=== PATIENT | male | born 1970 | race Caucasian/White ===

== ENCOUNTER 2020-09-20 09:44 | Outpatient (REF) | payer OTHER, SELFPAY ==
[2020-09-20 11:29] LABS: MANUAL DIFF FLAG NO
[2020-09-20 11:42] LABS: Red Blood Count 4.72 X10*6/uL (4.60-5.80); White Blood Count 6.3 X10*3/uL (4.8-10.8)
[2020-09-20 11:43] LABS: Basophils Percent Auto 0.5 % (0-2); Eosinophils Absolute Auto 0.1 X10*3/uL (0.0-0.4); Eosinophils Percent Auto 1.7 % (0-4); Hematocrit 42.1 % (42-52); Hemoglobin 14.2 g/dl (14.0-18.0); Imm Gran Abs Auto 0.04 X10*3/uL (0.00-0.03); Imm Gran Pct Auto 0.6 % (0.0-0.4); Lymphocytes Absolute Auto 1.6 X10*3/uL (1.2-4.9); Lymphocytes Percent Auto 25.5 % (20-40); Mean Corpuscular HGB Conc 33.7 g/dl (31.0-36.0); Mean Corpuscular Hemoglobin 30.1 pg (27.0-33.0); Mean Corpuscular Volume 89.2 fL (80-98); Mean Platelet Volume 8.7 fL (9.4-12.4); Monocytes Absolute Auto 0.5 X10*3/uL (0.1-1.2); Monocytes Percent Auto 7.6 % (2-11); Neutrophils Percent Auto 64.1 % (45-73); Platelet Count 284 X10*3/uL (160-400); Red Cell Distribution Width 11.8 % (11.0-16.0)
[2020-09-20 12:01] LABS: Glucose Urine UA NEG (NEG); Leukocyte Esterase Urine NEG (NEG); Nitrite Urine NEG (NEG); PH 5.5 (5.0-8.0); Specific Gravity - Urine >= 1.030 (1.005-1.025); Urine Blood NEG (NEG); Urine Ketones NEG (NEG); Urine Protein NEG (NEG-TRACE)
[2020-09-20 12:03] LABS: Alanine Aminotransferase 59 U/L (0-40); Albumin Level 4.3 g/dL (3.5-5.0); Alkaline Phosphatase 51 U/L (39-117); Anion Gap 14 (12-20); Aspartate Amino Transferase 35 U/L (5-37); Bilirubin Total 0.8 mg/dL (0.0-1.0); Blood Urea Nitrogen 13 mg/dL (9-16); Calcium 8.7 mg/dL (8.4-10.2); Carbon Dioxide 23 mmol/L (22-29); Chloride 104 mmol/L (96-108); Cholesterol 160 mg/dL; Estimated Glomerular Filt Rate > 60; Glucose Fasting 90 mg/dL (60-99); HDL Cholesterol 39 mg/dL; LDL Cholesterol Calculated 86 mg/dl; Potassium 4.8 mmol/l (3.3-5.1); Sodium 136 mmol/L (135-145); Total Protein 6.6 g/dL (6.5-8.0); Triglycerides 175 mg/dL
[2020-09-20 12:05] LABS: Appearance Urine HAZY; Color Urine YELLOW
[2020-09-20 12:19] LABS: Thyroid Stimulating Hormone 1.17 uIU/mL (0.32-4.0); Vitamin D 25-OH Total 22.2 ng/mL (>30)
[2020-09-20 12:50] LABS: Prostate Specific Antigen 0.42 ng/mL (<0.05-4.0)
== END 2020-09-20 09:45 | disposition home or self-care (01) ==
LOC: HO.HMGCLDS 09:44
PROVIDERS: PCP Internal Medicine; Visit Provider Internal Medicine
DX: Z00.00 Encounter for general adult medical examination without abnormal findings (principal); E78.00 Pure hypercholesterolemia, unspecified; E55.9 Vitamin D deficiency, unspecified; E66.01 Morbid (severe) obesity due to excess calories
CPT/HCPCS: 36415; 80053; 80061; 81003; 82306; 84153; 84443; 85025

== ENCOUNTER 2020-11-09 12:54 | Outpatient (REF) | payer OTHER, SELFPAY ==
--- NOTE | 2020-11-09 14:47 | MHC.AU.P13 ---
Adult Audiological Evaluation Date of Visit: 11/09/20 Reason for Appointment: Audiological evaluation due to concerns for decreased hearing. Mr. Martinez reports that he has difficulties hearing in background noise and his often notes that he doesn't hear her. Does patient feel they have a hearing loss?: Yes If Yes, Which Ear?: Both Ears When Was Hearing Difficulty First Noticed?: several years ago Has hearing been tested previously?: Yes Previous Hearing Test Results: [facility] [place], 06/26/2014- Normal hearing, middle-ear systems, and OAEs bilaterally. Hearing Handicap Inventory: HHIE SCORE: 26 Based on HHIE score, patient has: Severe perceived hearing handicap Medical History: Medical History (Other): Microdiscectomy in 05/2002 Medication List: Simvastatin 40 mg, D3 2000 u, D2 50,000 u Otoscopy: Right Ear: Unremarkable Left Ear: Unremarkable Tympanometry: Right Ear: Hypercompliant Middle Ear System (Type Ad) Left Ear: Hypercompliant Middle Ear System (Type Ad) Hearing Evaluation: Transducer(s) Used: Insert Earphones, Bone Conduction Method: Conventional Audiometry Stimuli Used: Pure Tones Right Ear: Description of Hearing: Normal hearing from 250-8000 Hz. Left Ear: Description of Hearing: Normal hearing from 250-8000 Hz. Speech Recognition Threshold (SRT): Method Used: Monitored Live Voice Stimuli Used: Spondee Words Right Ear: 10 dBHL Left Ear: 10 dBHL Word Discrimination: Method: Recorded Lists Word Lists Used: NU-6 Right Ear: 100% at 50 dBHL Left Ear: 100% at 50 dBHL QuickSIN: 1 dB SNR loss, normal/near normal speech understanding in the presence of background noise. Presented binaurally at 70 dBHL Comparison: Compared to the most recent evaluation: Hearing is stable. Recommendations: Recommendations: No further audiological action is indicated at this time. Audiological re-evaluation if changes are noted. Diagnosis: Primary Diagnosis: H93.293 Abnormal Auditory Perception Services Performed: Services Performed: Comprehensive Audiological Evaluation (CPT 76307) Tympanometry (CPT 88332) Unlisted Otorhinolaryngological Service or Procedure (CPT 44999) Signature: Provider: Estelle Kapoor, DEBRA-A
== END 2020-11-09 12:55 | disposition home or self-care (01) ==
LOC: HO.SH 12:54
PROVIDERS: Visit Provider Internal Medicine
DX: H93.293 Other abnormal auditory perceptions, bilateral (principal)
CPT/HCPCS: 92557; 92567; 92700

== ENCOUNTER → 2020-11-10 14:59 | Outpatient (BNVA) | payer OTHER, SELFPAY | PROVIDERS: PCP Internal Medicine; Visit Provider Internal Medicine | DX: Z76.89 Persons encountering health services in other specified circumstances (principal) ==

== ENCOUNTER → 2020-11-23 14:05 | Outpatient (REF) | payer OTHER, SELFPAY | LOC: HO.SL 14:05 | PROVIDERS: Visit Provider Internal Medicine | DX: G47.33 Obstructive sleep apnea (adult) (pediatric) (principal); E66.01 Morbid (severe) obesity due to excess calories | CPT/HCPCS: 95806 ==

== ENCOUNTER 2021-01-10 06:30 | Day surgery (SDC) | payer OTHER, SELFPAY ==
[2021-01-03 20:22] VITALS: BMI 39.1
[2021-01-10 06:42] VITALS: BP 127/76; PULSE 93; RESP 18; TEMP 37.1; O2SAT 97
--- NOTE | 2021-01-10 07:29 | P.CONAN_ITS ---
[facility] Active Problems Active Problems: All Active Problems (Updated 01/03/21 @ 20:22 by Diana Diaz RN) KELSEY (obstructive sleep apnea) (Acute) Morbid obesity (Acute) Past Medical History Medical History Morbid obesity KELSEY (obstructive sleep apnea) Surgical History Surgical History History of colonoscopy History of discectomy (~2001) Social History Social History Smoking Status: Never smoker Second Hand Smoke Exposure: No Use of substances other than those prescribed or required for medical reasons: No Advance Directives: No Advance Directives Information Provided: No Advance Directives on File: No Recently lost weight without trying: No Meds Allergies Allergy/AdvReac Type Severity Reaction Status Date / Time No Known Allergies Allergy Verified 11/10/20 15:14 [No Known Allergies*] Active Medications: Current Medications Generic Name Dose Route Start Last Admin Trade Name Freq PRN Reason Stop Dose Admin Sodium Biphosphate/Sodium Phosphate 133 ml 01/10/21 06:00 Sodium Phosphate,[place]-Dibasic 133 Ml Enema PA ONCE PRN Poor Colonoscopy Prep Results Home Medications Medication Instructions Recorded Confirmed Last Taken Type cholecalciferol (vitamin D3) 125 125 mcg PO DAILY 11/10/20 01/04/21 Unknown History mcg (5,000 unit) capsule ergocalciferol (vitamin D2) 1,250 1,250 mcg PO QWEEK 11/10/20 01/04/21 Unknown History mcg (50,000 unit) capsule simvastatin 40 mg tablet 40 mg PO BEDTIME 11/10/20 01/04/21 Unknown History Exam Exam Date and Time: January 10, 2021 0729 Height,Weight and Vital Signs: Height 5 ft 7 in Weight 113.398 kg Last Vital Signs Temp 98.7 F 01/10/21 06:42 Pulse 93 01/10/21 06:42 Resp 18 01/10/21 06:42 BP 127/76 01/10/21 06:42 Pulse Ox 97 01/10/21 06:42 Airway Mallampati Class: III TM Dist: >3cm Neck ROM: Full
[2021-01-10] MEDS: Lactated Ringers 1,000 ML 100 ML IVCONT (07:33)
[2021-01-10 08:25] VITALS: BP 106/53; PULSE 85; RESP 15; TEMP 35.9; O2SAT 96
--- NOTE | 2021-01-10 08:27 | PM.OP ---
Brief Operative Note Date of Service: 01/10/21 Pre-op diagnosis: Screening Post-op diagnosis: other (Colon polyp) Procedure: Colonoscopy to cecum and TI with biopsy and removal of polyp Surgeon: Pardeep Antonio Anesthesia: MAC Estimated blood loss (mL): 3.0 Pathology: other (A. Polyp at 20cm) Condition: stable Disposition: PACU
[2021-01-10 08:40] VITALS: BP 111/66; PULSE 73; RESP 16; O2SAT 99
--- NOTE | 2021-01-10 08:48 | PC.NURSE ---
[id number] AND IVF DCD ASST OOB CH STEADY IV DCD PT DRESSED DSELF AT BS CALL MARCOS IN REACH
--- NOTE | 2021-01-10 09:12 | OP_ITS ---
SURGEON: Pardeep Antonio MD INDICATIONS: The patient presents for evaluation of colorectal cancer screening and personal history of tubular adenoma of the colon. Full consent has been obtained from him for this, including risks of bleeding and perforation. PREOPERATIVE DIAGNOSIS: POSTOPERATIVE DIAGNOSIS: PROCEDURE PERFORMED: Colonoscopy to cecum and terminal ileum with biopsy and removal of polyp. ESTIMATED BLOOD LOSS: COMPLICATIONS: ANESTHESIA: Monitored anesthesia care. ASSISTANTS: SPECIMENS: PREOPERATIVE DIAGNOSES: Colorectal cancer screening and personal history of tubular adenoma of the colon. POSTOPERATIVE DIAGNOSES: Colorectal cancer screening and personal history of tubular adenoma of the colon, small colon polyp, mild sigmoid diverticulosis, internal hemorrhoids. DESCRIPTION OF PROCEDURE: The patient was placed in the left lateral decubitus position. The digital rectal exam revealed no abnormalities. The Olympus video pediatric colonoscope was entered into the rectum and advanced easily to the cecum. Once in the cecum, I did identify normal-appearing cecal pouch with appendiceal orifice and a normal-appearing ileocecal valve. The terminal ileum was cannulated and appeared normal. The scope was withdrawn back in the colon. The entire cecum and ileocecal valve appeared normal. The scope was slowly withdrawn assessing all mucosal surfaces carefully. Preparation was excellent. At 20 cm, was a flat 3 or 4 mm probable hyperplastic polyp, which was biopsied and completely removed with cold biopsy forceps. I did not visualize any other polyps, colitis, nor angiodysplasia. There was a mild amount of sigmoid diverticulosis. In the rectum, scope was retroflexed visualizing small internal hemorrhoids, but no other pathology. The rectal mucosa appeared normal. The scope was straightened out and withdrawn from the patient. He tolerated the procedure well and was returned to the recovery area in stable condition. IMPRESSION: 1. Small colon polyp, status post biopsy and removal. 2. Mild sigmoid diverticulosis. 3. Small internal hemorrhoids. PLAN: The results of the pathology will be checked. I would recommend a repeat colonoscopy in 5 years for further surveillance. He will otherwise see me on a p.r.n. basis. MD KOBI Madrigal/STEPAN / [phone]
== END 2021-01-10 09:17 | disposition home or self-care (01) ==
PROVIDERS: PCP Internal Medicine; Visit Provider Internal Medicine
PROC: 0DJD8ZZ Inspection of Lower Intestinal Tract, Via Natural or Artificial Opening Endoscopic (ICD-10-PCS; CPT 45378; principal; 2021-01-10 07:30)
DX: Z12.11 Encounter for screening for malignant neoplasm of colon (principal); Z86.010 Personal history of colon polyps; K63.5 Polyp of colon; K57.30 Diverticulosis of large intestine without perforation or abscess without bleeding; K64.8 Other hemorrhoids; G47.33 Obstructive sleep apnea (adult) (pediatric); E66.01 Morbid (severe) obesity due to excess calories; Z68.41 Body mass index [BMI] 40.0-44.9, adult; Z79.899 Other long term (current) drug therapy; Z79.82 Long term (current) use of aspirin
CPT/HCPCS: 45380; 88305

== ENCOUNTER 2022-01-10 15:57 | Outpatient (REF) | payer OTHER, SELFPAY ==
[2022-01-10 16:09] LABS: MANUAL DIFF FLAG NO
[2022-01-10 16:26] LABS: Basophils Percent Auto 0.5 % (0-2); Eosinophils Absolute Auto 0.2 X10*3/uL (0.0-0.4); Eosinophils Percent Auto 2.2 % (0-4); Hematocrit 43.1 % (42.0-52.0); Hemoglobin 14.7 g/dl (14.0-18.0); Imm Gran Abs Auto 0.02 X10*3/uL (0.00-0.03); Imm Gran Pct Auto 0.2 % (0.0-0.4); Lymphocytes Percent Auto 23.2 % (20-40); Mean Corpuscular HGB Conc 34.1 g/dl (31.0-36.0); Mean Corpuscular Hemoglobin 30.5 pg (27.0-33.0); Mean Corpuscular Volume 89.4 fL (80.0-98.0); Mean Platelet Volume 8.5 fL (9.4-12.4); Monocytes Absolute Auto 0.7 X10*3/uL (0.1-1.2); Monocytes Percent Auto 8.2 % (2-11); Neutrophils Absolute Auto 5.6 x10*3/uL (2.0-8.3); Neutrophils Percent Auto 65.7 % (45-73); Platelet Count 295 X10*3/uL (160-400); Red Blood Count 4.82 X10*6/uL (4.60-5.80); Red Cell Distribution Width 11.8 % (11.0-16.0); White Blood Count 8.5 X10*3/uL (4.8-10.8)
[2022-01-10 16:46] LABS: Alanine Aminotransferase 32 U/L (0-40); Albumin Level 4.5 g/dL (3.5-5.0); Alkaline Phosphatase 59 U/L (39-117); Anion Gap 12 (12-20); Aspartate Amino Transferase 21 U/L (5-37); Bilirubin Total 0.6 mg/dL (0.0-1.0); Blood Urea Nitrogen 11 mg/dL (9-16); Calcium 9.6 mg/dL (8.4-10.2); Carbon Dioxide 26 mmol/L (22-29); Chloride 104 mmol/L (96-108); Estimated Glomerular Filt Rate > 60; Glucose Random 83 mg/dL (60-115); Potassium 4.5 mmol/L (3.3-5.1); Sodium 137 mmol/L (135-145); Total Protein 6.9 g/dL (6.5-8.0)
[2022-01-10 17:08] LABS: Vitamin D 25-OH Total 44.5 ng/mL (>30)
== END 2022-01-10 15:58 | disposition home or self-care (01) ==
LOC: HO.LAB 15:57
PROVIDERS: PCP Internal Medicine; Visit Provider Internal Medicine
DX: Z00.00 Encounter for general adult medical examination without abnormal findings (principal); E78.00 Pure hypercholesterolemia, unspecified; E55.9 Vitamin D deficiency, unspecified; E66.01 Morbid (severe) obesity due to excess calories; R41.3 Other amnesia
CPT/HCPCS: 36415; 80053; 82306; 85025

== ENCOUNTER → 2022-02-02 14:46 | Outpatient (BNVA) | payer OTHER, SELFPAY | PROVIDERS: PCP Internal Medicine; Visit Provider Internal Medicine | DX: G47.33 Obstructive sleep apnea (adult) (pediatric) (principal) ==

== ENCOUNTER 2022-02-13 13:04 | Outpatient (REF) | payer OTHER, SELFPAY ==
[2022-02-13 15:32] LABS: Vitamin B12 316 pg/mL (200-900)
== END 2022-02-13 13:05 | disposition home or self-care (01) ==
LOC: HO.LAB 13:04
PROVIDERS: Internal Medicine; PCP Internal Medicine; Visit Provider Psychiatry & Neurology Neurology
DX: G31.84 Mild cognitive impairment of uncertain or unknown etiology (principal)
CPT/HCPCS: 36415; 82607

== ENCOUNTER 2023-06-01 12:52 | Outpatient (REF) | payer OTHER, SELFPAY ==
[2023-06-01 16:14] LABS: MANUAL DIFF FLAG NO
[2023-06-01 16:38] LABS: Basophils Percent Auto 0.4 % (0-2); Eosinophils Absolute Auto 0.1 X10*3/uL (0.0-0.4); Hematocrit 42.5 % (42.0-52.0); Hemoglobin 14.3 g/dl (14.0-18.0); Imm Gran Abs Auto 0.02 X10*3/uL (0.00-0.03); Imm Gran Pct Auto 0.3 % (0.0-0.4); Lymphocytes Absolute Auto 1.8 X10*3/uL (1.2-4.9); Lymphocytes Percent Auto 25.6 % (20-40); Mean Corpuscular HGB Conc 33.6 g/dl (31.0-36.0); Mean Corpuscular Volume 89.3 fL (80.0-98.0); Monocytes Absolute Auto 0.5 X10*3/uL (0.1-1.2); Monocytes Percent Auto 7.8 % (2-11); Neutrophils Absolute Auto 4.5 x10*3/uL (2.0-8.3); Neutrophils Percent Auto 63.9 % (45-73); Platelet Count 306 X10*3/uL (160-400); Red Blood Count 4.76 X10*6/uL (4.60-5.80); Red Cell Distribution Width 11.9 % (11.0-16.0)
[2023-06-01 16:55] LABS: C Reactive Protein 0.17 mg/dL (< or = 0.50)
[2023-06-04 18:17] LABS: Lyme Abs Screen <0.90 index
== END 2023-06-01 12:53 | disposition home or self-care (01) ==
LOC: HO.HMGCLDS 12:52
PROVIDERS: PCP Internal Medicine; Visit Provider Internal Medicine
DX: T14.8XXA Other injury of unspecified body region, initial encounter (principal); W57.XXXA Bitten or stung by nonvenomous insect and other nonvenomous arthropods, initial encounter; Y93.9 Activity, unspecified; Y92.9 Unspecified place or not applicable; Y99.9 Unspecified external cause status
CPT/HCPCS: 36415; 85025; 86140; 86617; 86618

== ENCOUNTER 2023-06-15 13:15 | Emergency (ER) | payer OTHER, SELFPAY ==
--- NOTE | 2023-06-15 | ECG_ITS ---
Test Reason : DIZZY Blood Pressure : / mmHG Vent. Rate : 077 BPM Atrial Rate : 077 BPM P-R Int : 156 ms QRS Dur : 090 ms QT Int : 390 ms P-R-T Axes : 021 009 001 degrees QTc Int : 441 ms Normal sinus rhythm Normal ECG No previous ECGs available Referred By: Generic ED Physician Electronically Signed By:Miguel Tran
--- NOTE | ~2023-06-15 | CT_ITS ---
EXAMINATION: CT ANGIOGRAM NECK WITH CONTRAST CT ANGIOGRAM BRAIN WITH CONTRAST CLINICAL INFORMATION: Dizziness. COMPARISON: None. TECHNIQUE: Test bolus sequences followed by intravenous administration 100 mL of Omnipaque 350. Helical imaging was performed in the axial plane from the thoracic inlet to the skull vertex. Delayed postcontrast imaging of the head was also performed. The data was processed at the dairy technologist workstation for generation of MIP sequences. Angled MIPs and volume rendered reformatted images were also generated at an offline 3D workstation. Stenoses are assessed in accordance with NASCET criteria unless otherwise indicated. This CT examination was performed using dose optimization techniques as appropriate, variously including the following: *Automated exposure control *Adjustment of mA and/or kV according to patient size (this includes techniques or standardized protocols for targeted exams where dose is matched to indication/reason for exam; i.e. extremities or head) *Use of iterative reconstruction technique DLP: 2504 mGy-cm FINDINGS: Head CT: There is no intracranial hemorrhage, large acute infarction, or mass lesion. The ventricles are normal in size and configuration without evidence of hydrocephalus. There is no abnormal enhancement. The dural venous sinuses are normally opacified. There is mild paranasal sinus mucosal thickening. Neck CTA: Aortic arch and great vessel origins are patent. The bilateral common and internal carotid arteries are patent. No significant stenosis is seen at the carotid bifurcations with mild atheromatous changes noted. Both vertebral arteries are patent. Head CTA: No large vessel occlusion is seen. Intracranial ICAs, ACAs, and MCAs are patent. The intradural vertebral arteries and basilar artery are patent. No aneurysm is seen. Non-vascular findings: The cervical soft tissues are within normal limits. No consolidation is seen within the upper lungs. Mild degenerative changes are seen in the spine. CT/CT angio head neck IMPRESSION: CT HEAD: No intracranial hemorrhage or large acute infarction. CTA NECK: No hemodynamically significant stenosis in the major arteries of the neck. CTA HEAD: No large vessel occlusion or significant stenosis within the intracranial circulation.
[2023-06-15 13:26] VITALS: BP 124/88; PULSE 96; O2SAT 96
[2023-06-15 13:28] VITALS: BP 121/66; PULSE 95; RESP 16; TEMP 36.4; O2SAT 97; BMI 44.4
[2023-06-15 15:52] LABS: MANUAL DIFF FLAG NO
[2023-06-15 15:58] LABS: Basophils Percent Auto 0.3 % (0-2); Eosinophils Percent Auto 0.1 % (0-4); Hematocrit 39.6 % (42.0-52.0); Hemoglobin 13.7 g/dl (14.0-18.0); Imm Gran Abs Auto 0.04 X10*3/uL (0.00-0.03); Imm Gran Pct Auto 0.4 % (0.0-0.4); Lymphocytes Percent Auto 11.2 % (20-40); Mean Corpuscular HGB Conc 34.6 g/dl (31.0-36.0); Mean Corpuscular Hemoglobin 30.1 pg (27.0-33.0); Mean Platelet Volume 8.4 fL (9.4-12.4); Monocytes Absolute Auto 0.4 X10*3/uL (0.1-1.2); Monocytes Percent Auto 4.1 % (2-11); Neutrophils Absolute Auto 7.5 x10*3/uL (2.0-8.3); Neutrophils Percent Auto 83.9 % (45-73); Platelet Count 272 X10*3/uL (160-400); Red Blood Count 4.55 X10*6/uL (4.60-5.80); Red Cell Distribution Width 11.8 % (11.0-16.0)
--- NOTE | 2023-06-15 16:30 | ED_ITS ---
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 No CP/SOB. Currently has no dizziness just feels nauseated still. Has not had this before. Has no numbness, weakness, vision changes. EMS gave zofran which helped. 2 weeks ago he has had on and off bleeding from L ear - has had ear infetions in the past and was going to wait to see Dr. Castellano. No neck pain and no neck manipulation. This is not characteristic of his Chiaria pain or issues. MD elicited complaint: dizziness and lightheadedness Pertinent past history: inner ear problems Onset (ago): hour(s) (started 930AM) Timing: sudden onset Severity: severe Description: room spinning Context: other (bleeding L ear on and off 2 weeks ago) History of similar symptoms: No Exacerbating factors: movement/ambulation Relieving factors: remaining still Associated symptoms: nausea and diaphoresis Related Data Home Medications Medication Instructions Recorded Confirmed cholecalciferol (vitamin D3) 125 125 mcg PO DAILY 11/10/20 01/04/21 mcg (5,000 unit) capsule ergocalciferol (vitamin D2) 1,250 1,250 mcg PO QWEEK 11/10/20 01/04/21 mcg (50,000 unit) capsule simvastatin 40 mg tablet 40 mg PO BEDTIME 11/10/20 01/04/21 ascorbic acid (vitamin C) 500 mg mg PO 02/02/22 capsule aspirin 81 mg tablet,delayed 81 mg PO DAILY 02/02/22 release pumpkin seed extract 500 mg capsule mg PO 02/02/22 Previous Rx's Medication Instructions Recorded amoxicillin 875 mg-potassium 1 tab PO BID #13 tabs 06/15/23 clavulanate 125 mg tablet meclizine 25 mg tablet 25 mg PO TID PRN dizziness #30 tabs 06/15/23 ofloxacin 0.3 % ear drops 10 drp otic (ears) DAILY 7 days #5 06/15/23 mL ondansetron 4 mg disintegrating 4 mg PO Q8H PRN nausea and 06/15/23 tablet vomiting #20 tabs Allergies Allergy/AdvReac Type Severity Reaction Status Date / Time No Known Allergies Allergy Verified 02/02/22 15:33 [No Known Allergies*] Review of Systems Review of Systems: Constitutional : No Fever, No Chills, No Fatigue ENT/Mouth : No sore throat, No Rhinorrhea, pos ear pain and bleeding Eyes: No Eye Pain, No Swelling, No Redness Cardiovascular : No Chest Pain, No SOB, No Dyspnea on Exertion Respiratory : No Cough, No Sputum Gastrointestinal : pos Nausea, pos Vomiting, No Diarrhea, No abdominal Pain Genitourinary : No Dysuria, No Urinary Frequency, No Hematuria, Musculoskeletal : No joint pain, No Myalgias, No Joint Swelling Skin : No Skin Lesions, No rash Neuro : No Weakness, No Numbness, pos Dizziness, no Headache Psych : No Anxiety/Panic, No Depression Heme/Lymph: No Bruising, No Bleeding,No Lymphadenopathy Endocrine : No Polyuria, No Polydipsia All other systems reviewed and are negative [facility] Past Medical History Attestation statement: The following information was validated with the patient. Medical History Morbid obesity KELSEY (obstructive sleep apnea) Surgical History History of colonoscopy History of discectomy (~2001) Social History Social History (Updated 06/15/23 @ 17:43 by Corin Wan DO) Patient Tobacco Use Status: Never used Tobacco Second Hand Smoke Exposure: No Advance Directives: No Advance Directives Information Provided: No Physical Exam Vital Signs: Vital Signs: Last Vital Signs Temp 98.6 F 06/15/23 19:07 Pulse 79 06/15/23 19:07 Resp 13 06/15/23 19:07 BP 116/63 06/15/23 19:07 Pulse Ox 98 06/15/23 19:07 O2 Del Method Room Air 06/15/23 19:07 BMI result Body Mass Index 44.4 Appearance: Alert. Oriented X3. No acute distress. Eyes: Pupils equal, round and reactive to light. ENT: Pharynx normal. L TM mild otitis media bulging loss of landmarks and yellow effusion noted dried bloody scab in canal as well Neck: Normal inspection. Neck supple. CVS: Normal heart rate and rhythm. Pulses normal. Respiratory: No respiratory distress. Breath sounds normal. Abdomen: Soft and nontender. Skin: Skin warm and dry. Normal skin color. Normal skin turgor. Extremities: No lower extremity edema. No calf ttp Neuro: Oriented X 3. No motor deficit. No sensory deficit. no drift noted Course Course Course Narrative: feels better workup negative with symptoms > 8 hours at this time stable for DC tolerating PO Medications Administered Discontinued Medications Generic Name Dose Route Start Last Admin Trade Name Michelle PRN Reason Stop Dose Admin Sodium Chloride 1,000 mls @ 999 mls/hr 06/15/23 16:30 06/15/23 16:42 Ns IV 06/15/23 17:30 999 mls/hr .Q1H1M NIECY Administration Iohexol 100 ml 06/15/23 17:24 06/15/23 17:24 Iohexol 350 Mg/Ml 100 Ml Infus..Btl IV 06/15/23 17:25 70 ml ONCE ONE Administration Medical Decision Making Medical Decision Making [facility] Narrative: 53 yo male with hx of chiari malfomration, KELSEY here with c/o dizziness and n/v with diaphoresis this AM without CP/SOB to suggest ACS, PE/dissection. The patient does feel better this AM. It is not characteristic of his Jordana presentation. He did have bleeding from L ear but has scab in canal and has L otitis media which could be triggering vertigo. Given his chiari malformation I am going to obtain CTA to rule dissection. IVF ordered. Differential Diagnosis Differential Diagnoses: The differential diagnosis associated with the presentation includes vertigo, dehydration, atypical ACS, no CP/SOB - to suggest PE, no persistent dizziness numbness weakness changes in vision to suggest posterior stroke Admission/Observation Consideration of admission/observation: Escalation of care including admission/observation considered feels better work up negative tolerating PO Lab Data [facility] Lab Attestation statement: I reviewed the patient's lab results. 06/15/23 15:46 06/15/23 15:46 Labs: Lab Results 06/15/23 06/15/23 06/15/23 Range/Units 15:46 15:46 15:49 WBC 9.0 (4.8-10.8) X10*3/uL RBC 4.55 L (4.60-5.80) X10*6/uL Hgb 13.7 L (14.0-18.0) g/dl Hct 39.6 L (42.0-52.0) % MCV 87.0 (80.0-98.0) fL MCH 30.1 (27.0-33.0) pg MCHC 34.6 (31.0-36.0) g/dl RDW 11.8 (11.0-16.0) % Plt Count 272 (160-400) X10*3/uL MPV 8.4 L (9.4-12.4) fL Immature Gran % (Auto) 0.4 (0.0-0.4) % Neut % (Auto) 83.9 H (45-73) % Lymph % (Auto) 11.2 L (20-40) % [place] % (Auto) 4.1 (2-11) % Eos % (Auto) 0.1 (0-4) % Baso % (Auto) 0.3 (0-2) % Lymph # (Auto) 1.0 L (1.2-4.9) X10*3/uL [place] # (Auto) 0.4 (0.1-1.2) X10*3/uL Eos # (Auto) 0.0 (0.0-0.4) X10*3/uL Baso # (Auto) 0.0 (0.0-0.2) X10*3/uL Abs Immat Gran (auto) 0.04 H (0.00-0.03) X10*3/uL Absolute Neuts (auto) 7.5 (2.0-8.3) x10*3/uL Absolute Nucleated RBC 0.000 (0.0-0.012) X10*3/uL Nucleated RBC % (auto) 0.0 (0.0-0.2) /100WBC Sodium 138 (135-145) mmol/L Potassium 4.1 (3.3-5.1) mmol/L Chloride 107 (96-108) mmol/L Carbon Dioxide 25 (22-29) mmol/L Anion Gap 10 L (12-20) BUN 12 (9-16) mg/dL Creatinine 0.77 (0.5-1.4) mg/dL Estim Creat Clear Calc 144.6 Estimated GFR > 60 Random Glucose 123 H (60-115) mg/dL Calcium 9.1 (8.4-10.2) mg/dL Total Bilirubin 0.8 (0.0-1.0) mg/dL AST 50 H (5-37) U/L ALT 84 H (0-40) U/L Alkaline Phosphatase 49 (39-117) U/L Troponin I High Sens < 2.7 (<3.5-35.0) ng/L Total Protein 6.5 (6.5-8.0) g/dL Albumin 4.0 (3.5-5.0) g/dL Urine Color Urine Appearance Urine pH (5.0-9.0) Ur Specific [place] (1.005-1.025) Urine Protein (Neg-Trace) mg/dL Urine Glucose (UA) (Negative) mg/dL Urine Ketones (Negative) mg/dL Urine Blood (Negative) Urine Nitrite (Negative) Ur Leukocyte Esterase (Negative) Urine RBC (0-2) /HPF Urine WBC (0-5) /HPF Ur Squamous Epith Cells (0-2) /HPF Urine Bacteria (None Seen) Hyaline Casts (0-2) /LPF 06/15/23 Range/Units 19:10 WBC (4.8-10.8) X10*3/uL RBC (4.60-5.80) X10*6/uL Hgb (14.0-18.0) g/dl Hct (42.0-52.0) % MCV (80.0-98.0) fL MCH (27.0-33.0) pg MCHC (31.0-36.0) g/dl RDW (11.0-16.0) % Plt Count (160-400) X10*3/uL MPV (9.4-12.4) fL Immature Gran % (Auto) (0.0-0.4) % Neut % (Auto) (45-73) % Lymph % (Auto) (20-40) % [place] % (Auto) (2-11) % Eos % (Auto) (0-4) % Baso % (Auto) (0-2) % Lymph # (Auto) (1.2-4.9) X10*3/uL [place] # (Auto) (0.1-1.2) X10*3/uL Eos # (Auto) (0.0-0.4) X10*3/uL Baso # (Auto) (0.0-0.2) X10*3/uL Abs Immat Gran (auto) (0.00-0.03) X10*3/uL Absolute Neuts (auto) (2.0-8.3) x10*3/uL Absolute Nucleated RBC (0.0-0.012) X10*3/uL Nucleated RBC % (auto) (0.0-0.2) /100WBC Sodium (135-145) mmol/L Potassium (3.3-5.1) mmol/L Chloride (96-108) mmol/L Carbon Dioxide (22-29) mmol/L Anion Gap (12-20) BUN (9-16) mg/dL Creatinine (0.5-1.4) mg/dL Estim Creat Clear Calc Estimated GFR Random Glucose (60-115) mg/dL Calcium (8.4-10.2) mg/dL Total Bilirubin (0.0-1.0) mg/dL AST (5-37) U/L ALT (0-40) U/L Alkaline Phosphatase (39-117) U/L Troponin I High Sens (<3.5-35.0) ng/L Total Protein (6.5-8.0) g/dL Albumin (3.5-5.0) g/dL Urine Color Yellow Urine Appearance Clear Urine pH 8.0 (5.0-9.0) Ur Specific [place] >= 1.030 H (1.005-1.025) Urine Protein Negative (Neg-Trace) mg/dL Urine Glucose (UA) Negative (Negative) mg/dL Urine Ketones Negative (Negative) mg/dL Urine Blood Negative (Negative) Urine Nitrite Negative (Negative) Ur Leukocyte Esterase Negative (Negative) Urine RBC 0-2 (0-2) /HPF Urine WBC 0-5 (0-5) /HPF Ur Squamous Epith Cells 0-2 (0-2) /HPF Urine Bacteria None Seen (None Seen) Hyaline Casts 0-2 (0-2) /LPF Independent Interpretation I performed an independent interpretation of an: EKG and CT Scan (normal ) Interpretation: Rate: 77 Rhythm: NSR [place]: normal Normal P waves. Normal RAIMUNDO. Normal QRS complex. ST T wave : inverted t wave III qTC: normal prior studies: no acute ischemia The study has been interpreted contemporaneously by me. . Radiology Impression Discussion of test interpretation with radiology: I discussed test interpretation with the radiologist and I have reviewed the radiologist's reading. Independent Historian Clinical information obtained from an independent historian. History obtained from or confirmed by: Spouse External Record Review External record reviewed: Office record Prescription Management I considered prescription management with: Antibiotic and Other Discharge Plan Discharge Clinical Impression: Dizziness Otitis media Qualifiers: Otitis media type: suppurative Chronicity: acute Laterality: left Recurrence: recurrent Spontaneous tympanic membrane rupture: without spontaneous rupture Qualified Code(s): H66.005 - Acute suppurative otitis media without spontaneous rupture of ear drum, recurrent, left ear Otitis externa Qualifiers: Otitis externa type: diffuse Chronicity: acute Laterality: left Qualified Code(s): H60.312 - Diffuse otitis externa, left ear Patient Disposition: Home, Self-Care Instructions: Ear Infection (ED), Dizziness (ED) Additional Instructions: return for worsening symptoms, increased dizziness, numbness, weakness, chest pain, trouble breathing, loss of vision or any other changes. follow up with your ENT. take a probiotic with your antibiotic. if you have more than 6 loose stools a day talk to your doctor your liver enzymes are mildly bumped this has happened in the past just make sure your doctor monitors this next week - this has been in chronic in the past. Prescriptions: New amoxicillin-pot clavulanate 875-125 mg tablet 1 tab PO BID Qty: 13 0RF ondansetron 4 mg tablet,disintegrating 4 mg PO Q8H PRN (Reason: nausea and vomiting) Qty: 20 0RF meclizine 25 mg tablet 25 mg PO TID PRN (Reason: dizziness) Qty: 30 0RF ofloxacin 0.3 % drops 10 drp otic (ears) DAILY 7 Days Qty: 5 0RF No Action simvastatin 40 mg tablet 40 mg PO BEDTIME cholecalciferol (vitamin D3) 125 mcg (5,000 unit) capsule 125 mcg PO DAILY ergocalciferol (vitamin D2) 1,250 mcg (50,000 unit) capsule 1,250 mcg PO QWEEK aspirin 81 mg tablet,delayed release (DR/EC) 81 mg PO DAILY pumpkin seed extract 500 mg capsule PO ascorbic acid (vitamin C) 500 mg capsule PO
[2023-06-15 16:39] LABS: Alanine Aminotransferase 84 U/L (0-40); Alkaline Phosphatase 49 U/L (39-117); Anion Gap 10 (12-20); Aspartate Amino Transferase 50 U/L (5-37); Bilirubin Total 0.8 mg/dL (0.0-1.0); Blood Urea Nitrogen 12 mg/dL (9-16); Calcium 9.1 mg/dL (8.4-10.2); Carbon Dioxide 25 mmol/L (22-29); Chloride 107 mmol/L (96-108); Creatinine Clr Calc Pharmacy 144.6; Estimated Glomerular Filt Rate > 60; Glucose Random 123 mg/dL (60-115); Potassium 4.1 mmol/L (3.3-5.1); Sodium 138 mmol/L (135-145); Total Protein 6.5 g/dL (6.5-8.0)
[2023-06-15 16:42] VITALS: BP 109/65; PULSE 75; RESP 12; TEMP 36.7; O2SAT 95
[2023-06-15] MEDS: 0.9 % Sodium Chloride 1,000 ML 999 ML IV (16:42)
[2023-06-15 17:09] LABS: Troponin-I High Sensitivity < 2.7 ng/L (<3.5-35.0)
[2023-06-15] MEDS: iohexoL 350 MG/ML 100 ML INFUS..BTL IV (17:24)
[2023-06-15 19:07] VITALS: BP 116/63; PULSE 79; RESP 13; TEMP 37; O2SAT 98
[2023-06-15 19:18] LABS: Appearance Urine Clear; Color Urine Yellow; Glucose Urine UA Negative (Negative); Leukocyte Esterase Urine Negative (Negative); Nitrite Urine Negative (Negative); Specific Gravity - Urine >= 1.030 (1.005-1.025); Urine Blood Negative (Negative); Urine Ketones Negative (Negative); Urine Protein Negative (Neg-Trace)
[2023-06-15 19:20] LABS: Bacteria Urine None Seen (None Seen); Hyaline Casts Urine 0-2 /LPF (0-2); RBC Urine 0-2 /HPF (0-2); Squamous Epithelial Cell Urine 0-2 /HPF (0-2); WBC Urine 0-5 /HPF (0-5)
== END 2023-06-15 20:09 | disposition home or self-care (01) ==
PROVIDERS: Emergency Provider Emergency Medicine
DX: R42 Dizziness and giddiness (principal); H66.005 Acute suppurative otitis media without spontaneous rupture of ear drum, recurrent, left ear; H60.312 Diffuse otitis externa, left ear
CPT/HCPCS: 36415; 70496; 70498; 80053; 81001; 84484; 85025; 93005; 99284; Q9967

== ENCOUNTER → 2023-06-15 16:32 | Outpatient (BNV) | payer OTHER, SELFPAY | PROVIDERS: Emergency Provider Emergency Medicine; Visit Provider Internal Medicine Cardiovascular Disease | DX: R42 Dizziness and giddiness (principal) | CPT/HCPCS: 93010 ==

== ENCOUNTER 2023-07-23 14:42 | Outpatient (AMB) | payer OTHER, SELFPAY ==
[2023-07-23 15:16] VITALS: BP 130/80; PULSE 84; TEMP 36.6; O2SAT 97; BMI 43.3
--- NOTE | 2023-07-23 15:16 | AM.OFFWIN_ITS ---
Intake Vital Signs 07/23/23 15:16 Height 5 ft 7 in Weight 276 lb 4 oz BMI 43.3 BP 130/80 Blood Pressure Location Rt brachial Position Sitting Pulse 84 Pulse Source Pulse Oximeter Temp 97.9 F Temp Source Temporal Artery Scan Pulse Oximetry (%) 97 Intake Visit Reasons: EST/splinter in right hand Intake Note: pt is here for c/o wound on palm of hand, unsure if something is inside Patient Tobacco Use Status: Never used Tobacco Allergies No Known Allergies [No Known Allergies*] Allergy (Verified 07/23/23 15:53) Medication List - Last Reconciled 07/23/23 by Seven Zhang MD ascorbic acid (vitamin C) mg PO aspirin 81 mg PO DAILY cholecalciferol (vitamin D3) 125 mcg PO DAILY ergocalciferol (vitamin D2) 1,250 mcg PO QWEEK meclizine 25 mg PO TID PRN ofloxacin 0.3% 10 drps otic (ears) DAILY 7 days ondansetron 4 mg PO Q8H PRN pumpkin seed extract mg PO simvastatin 40 mg PO BEDTIME HPI EST/splinter in right hand HPI Details 53-year-old male presents to the office for a sick visit. Week ago, patient had a splinter injury in his right hand he believes there is part of the splinter stool air. He feels discomfort at the wound and occasional drainage. PENDING SALE TO [facility] Medical History Morbid obesity KELSEY (obstructive sleep apnea) Surgical History History of colonoscopy History of discectomy (~2001) Social History (Updated 06/15/23 @ 17:43 by Corin Wan DO) Patient Tobacco Use Status: Never used Tobacco Second Hand Smoke Exposure: No Physical Exam Vital Signs: Last Vital Signs Temp 97.9 F 07/23/23 15:16 Pulse 84 07/23/23 15:16 BP 130/80 07/23/23 15:16 Pulse Ox 97 07/23/23 15:16 BMI result Body Mass Index 43.3 Skin Other: Right hand: Palmar surface: Wound at the base of the 2nd finger. Nontender to touch. It is healing. Assessment & Plan Assessment & Plan (1) Foreign body hand: Code(s): S60.559A - Superficial foreign body of unspecified hand, initial encounter Qualifiers: Encounter type: initial encounter Laterality: right Qualified Code(s): S60.551A - Superficial foreign body of right hand, initial encounter Plan: X-ray images were personally reviewed by me. I did not see any foreign body. However patient is desiring exploration of the wound. A surgical appointment has been requested. Coding Level of Care Code Est Pt Level 4 (19820) Diagnoses Foreign body of right hand, initial encounter S60.551A Encounter type: initial encounter Laterality: right
== END 2023-07-23 16:20 | disposition home or self-care (01) ==
PROVIDERS: Visit Provider Internal Medicine
DX: S60.551A Superficial foreign body of right hand, initial encounter (principal)
CPT/HCPCS: 99214

== ENCOUNTER 2023-07-23 15:43 | Outpatient (REF) | payer OTHER, SELFPAY ==
--- NOTE | ~2023-07-23 | XR_ITS ---
EXAMINATION: XR HAND, RIGHT CLINICAL INFORMATION: Superficial foreign body COMPARISON: None available. TECHNIQUE: PA, lateral, and oblique views of the right hand. FINDINGS: Soft tissue swelling along the dorsum of the hand. Few age-indeterminate calcifications adjacent to the radial aspect of the trapezium may reflect sequelae of age-indeterminate avulsion injury or possibly calcific radiopaque foreign bodies, recommend correlation with history of trauma. Joint spaces are maintained. XR/XR hand RT min 3V IMPRESSION: 1. Few age-indeterminate calcifications adjacent to the radial aspect of the trapezium may reflect sequelae of age-indeterminate avulsion injury or possibly calcific radiopaque foreign bodies, recommend correlation with history of trauma. 2. Soft tissue swelling along the dorsum of the hand.
== END 2023-07-23 15:44 | disposition home or self-care (01) ==
LOC: HO.HMGCX 15:43
PROVIDERS: PCP Internal Medicine; Visit Provider Internal Medicine
DX: S60.551A Superficial foreign body of right hand, initial encounter (principal); X58.XXXA Exposure to other specified factors, initial encounter; Y93.9 Activity, unspecified; Y92.9 Unspecified place or not applicable; Y99.9 Unspecified external cause status
CPT/HCPCS: 73130

== ENCOUNTER 2023-07-24 11:09 | Outpatient (AMB) | payer OTHER, SELFPAY ==
[2023-07-24 11:14] VITALS: BP 134/72; PULSE 85; BMI 42.0
--- NOTE | 2023-07-24 11:14 | MHC.OFFVIS ---
Intake Vital Signs 07/24/23 11:14 Height 5 ft 8 in Weight 276 lb BMI 42.0 BP 134/72 Blood Pressure Location Rt brachial Position Sitting Pulse 85 Intake Visit Reasons: Foreign body Rt hand Intake Note: Patient referred for foreign body on Rt hand 3-4wks. 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 C/o bleeding on and off for a week. 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 He thinks approximately 2 weeks ago he sustained some sort of sliver in the area. He was seen walk-in clinic where an x-ray demonstrated no obvious foreign body. Because of persistence of drainage, he presents here for further evaluation. Chart was reviewed and patient evaluated [facility] Medical History KELSEY (obstructive sleep apnea) Morbid obesity Surgical History History of discectomy (~2001) History of colonoscopy Social History (Updated 07/24/23 @ 11:18 by BRIE Coffman) Alcohol intake: current Alcohol intake frequency: holidays/special occasions only Alcohol type: beer Patient Tobacco Use Status: Never used Tobacco Second Hand Smoke Exposure: No Physical Exam Vital Signs: Last Vital Signs Pulse 85 07/24/23 11:14 BP 134/72 07/24/23 11:14 BMI result Body Mass Index 42.0 Extrem Other: Right hand is grossly neurovascularly intact. Distal mid palm demonstrates a draining granulating tract. On pressure, no purulence was expressed. This is highly suggestive of a foreign body in the form a sliver retained and body is attempting to extruded it. Office Procedures I&D Drain Details: Risks, benefits, alternatives of local wound exploration were reviewed with the patient and his significant other and included but not limited to bleeding, infection, non diagnosis, numbness, pain, scarring the patient was to proceed. After appropriate positioning, patient palmar aspect of right hand underwent Betadine prep 1% lidocaine. The trach was opened transversely and wound explored with clamp. All quadrants were evaluated with no obvious foreign body demonstrated. Wound was irrigated, secured hemostasis, and closed with a single U-stitch 3-0 nylon followed bacitracin and sterile dressing. Patient tolerated procedure well. [id number] of Skin Abscess, complex All charges added?: Procedure code (CPT) selection complete Assessment & Plan Assessment & Plan (1) Foreign body hand: Code(s): S60.559A - Superficial foreign body of unspecified hand, initial encounter Qualifiers: Encounter type: initial encounter Laterality: right Qualified Code(s): S60.551A - Superficial foreign body of right hand, initial encounter Plan: Patient might have been given local instructions including protecting the area, dressing changes, elevation extremity, ice, and patient will see me in a few days time for follow-up or p.r.n. Orders: Orders AMB Incision & Drainage Today S60.559A - Superficial foreign body of unspecified hand, initial encounter Coding Level of Care Code New Pt Level 4 (72019) Diagnoses Foreign body of right hand, initial encounter S60.551A Encounter type: initial encounter Laterality: right CPT Codes I&D Drain - Drain 2: [id number] of Skin Abscess, complex ([id number])
== END 2023-07-24 11:41 | disposition home or self-care (01) ==
PROVIDERS: PCP Internal Medicine; Referring Provider Internal Medicine; Visit Provider Surgery
DX: S60.551A Superficial foreign body of right hand, initial encounter (principal)
CPT/HCPCS: 10060; 99204

== ENCOUNTER → 2023-07-24 11:09 | Outpatient (BNVA) | payer OTHER, SELFPAY | PROVIDERS: PCP Internal Medicine; Referring Provider Internal Medicine; Visit Provider Surgery | DX: S60.551A Superficial foreign body of right hand, initial encounter (principal) | CPT/HCPCS: 10060 ==

== ENCOUNTER 2023-07-31 10:23 | Outpatient (AMB) | payer OTHER, SELFPAY ==
[2023-07-31 10:29] VITALS: BP 137/72; PULSE 76; BMI 41.5
--- NOTE | 2023-07-31 10:29 | A.OFFVIS_ITS ---
Intake Vital Signs 07/31/23 10:29 Height 5 ft 8 in Weight 273 lb BMI 41.5 BP 137/72 Blood Pressure Location Rt brachial Position Sitting Pulse 76 Intake Visit Reasons: Foreign body Rt hand, 1 week follow up Intake Note: Patient here to f/u foreign body on rt hand. Reports healing well. water mangle tender at times. 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 He has no wound issues or complaints. He has been wearing a bandage and a glove at his workplace. [facility] Medical History KELSEY (obstructive sleep apnea) Morbid obesity Surgical History History of discectomy (~2001) History of colonoscopy Social History Alcohol intake: current Alcohol intake frequency: holidays/special occasions only Alcohol type: beer Patient Tobacco Use Status: Never used Tobacco Second Hand Smoke Exposure: No Physical Exam Vital Signs: Last Vital Signs Pulse 76 07/31/23 10:29 BP 137/72 07/31/23 10:29 BMI result Body Mass Index 41.5 Extrem Other: Right hand wound is healing uneventfully. Suture was removed without incident. Dressing was applied. Assessment & Plan Assessment & Plan (1) Foreign body hand: Code(s): S60.559A - Superficial foreign body of unspecified hand, initial encounter Qualifiers: Encounter type: initial encounter Laterality: right Qualified Code(s): S60.551A - Superficial foreign body of right hand, initial encounter Plan Patient and his have been given local wound care instructions. Should this process recur, they were instructed to call the office, or otherwise follow-up p.r.n. Coding Level of Care Code Global (85291) Diagnoses Foreign body of right hand, initial encounter S60.551A Encounter type: initial encounter Laterality: right
== END 2023-07-31 11:04 | disposition home or self-care (01) ==
PROVIDERS: PCP Internal Medicine; Visit Provider Surgery
DX: S60.551A Superficial foreign body of right hand, initial encounter (principal)
CPT/HCPCS: 99024

== ENCOUNTER → 2023-07-31 10:23 | Outpatient (BNVA) | payer OTHER, SELFPAY | PROVIDERS: PCP Internal Medicine; Visit Provider Surgery ==

== ENCOUNTER 2024-10-10 06:38 | Outpatient (REF) | payer OTHER, SELFPAY ==
--- NOTE | ~2024-10-10 | XR_ITS ---
EXAMINATION: XR CHEST CLINICAL INFORMATION: CHRONIC COUGH COMPARISON: CXr on 01/22/19 TECHNIQUE: 2 views of the chest were obtained. FINDINGS: No significant abnormality is noted involving the heart, lungs, mediastinum, bony thorax or soft tissues. XR/XR chest 2V IMPRESSION: Unremarkable examination. Electronically signed by: Mirna Garrison MD 10/10/2024 10:26 AM [facility]
[2024-10-10 06:50] LABS: MANUAL DIFF FLAG NO
[2024-10-10 07:24] LABS: Basophils Absolute Auto 0.1 X10*3/uL (0.0-0.2); Eosinophils Absolute Auto 0.2 X10*3/uL (0.0-0.4); Eosinophils Percent Auto 3.1 % (0-4); Hematocrit 42.2 % (42.0-52.0); Hemoglobin 14.6 g/dl (14.0-18.0); Imm Gran Abs Auto 0.01 X10*3/uL (0.00-0.03); Imm Gran Pct Auto 0.2 % (0.0-0.4); Lymphocytes Absolute Auto 2.4 X10*3/uL (1.2-4.9); Lymphocytes Percent Auto 39.4 % (20-40); Mean Corpuscular HGB Conc 34.6 g/dl (31.0-36.0); Mean Corpuscular Hemoglobin 30.7 pg (27.0-33.0); Mean Corpuscular Volume 88.7 fL (80.0-98.0); Mean Platelet Volume 8.5 fL (9.4-12.4); Monocytes Absolute Auto 0.7 X10*3/uL (0.1-1.2); Monocytes Percent Auto 11.2 % (2-11); Neutrophils Absolute Auto 2.8 x10*3/uL (2.0-8.3); Neutrophils Percent Auto 45.1 % (45-73); Platelet Count 340 X10*3/uL (160-400); Red Blood Count 4.76 X10*6/uL (4.60-5.80); Red Cell Distribution Width 12.1 % (11.0-16.0); White Blood Count 6.1 X10*3/uL (4.8-10.8)
[2024-10-10 08:12] LABS: Alanine Aminotransferase 87 U/L (0-40); Albumin Level 4.3 g/dL (3.5-5.0); Alkaline Phosphatase 64 U/L (39-117); Anion Gap 14 (12-20); Aspartate Amino Transferase 44 U/L (5-37); Bilirubin Total 0.6 mg/dL (0.0-1.0); Blood Urea Nitrogen 11 mg/dL (9-16); Calcium 9.5 mg/dL (8.4-10.2); Carbon Dioxide 26 mmol/L (22-29); Chloride 105 mmol/L (96-108); Cholesterol 222 mg/dL (<200); Estimated Glomerular Filt Rate > 60; Glucose Fasting 113 mg/dL (60-99); HDL Cholesterol 40 mg/dL (>40); LDL Cholesterol Calculated 153 mg/dL (<100); Potassium 4.6 mmol/L (3.3-5.1); Sodium 140 mmol/L (135-145); Total Protein 7.1 g/dL (6.5-8.0); Triglycerides 147 mg/dL (<150)
[2024-10-10 08:24] LABS: PSA,Total (Free>4and<10) 0.64 ng/mL (0.00-4.00)
[2024-10-10 08:29] LABS: Thyroid Stimulating Hormone 1.44 uIU/mL (0.32-4.0); Vitamin D 25-OH Total 20.8 ng/mL (>30)
== END 2024-10-10 06:39 | disposition home or self-care (01) ==
LOC: HO.XRAY 06:38
PROVIDERS: PCP Internal Medicine; Visit Provider Internal Medicine
DX: Z00.00 Encounter for general adult medical examination without abnormal findings (principal); E66.01 Morbid (severe) obesity due to excess calories; E78.00 Pure hypercholesterolemia, unspecified; E55.9 Vitamin D deficiency, unspecified; Z12.5 Encounter for screening for malignant neoplasm of prostate
CPT/HCPCS: 36415; 71046; 80053; 80061; 82306; 84153; 84443; 85025

== ENCOUNTER 2024-10-14 16:04 | Outpatient (AMB) | payer OTHER, SELFPAY ==
[2024-10-14 16:08] VITALS: BP 112/78; PULSE 92; O2SAT 97; BMI 42.3
--- NOTE | 2024-10-14 16:08 | A.OFFVIS_ITS ---
Vital Signs 10/14/24 16:08 Height 5 ft 7 in Weight 270 lb 1.06 oz BMI 42.3 BP 112/78 Blood Pressure Location Lt brachial Position Sitting Pulse 92 Pulse Source Pulse Oximeter Pulse Oximetry (%) 97 Oxygen Delivery Method Room Air Intake Visit Reasons: chronic cough Intake Note: pt is here for follow up for chronic cough with production, no color, has been going on since July. on 2 antibiotics. spaced out about a month apart, as soon as he stops, it comes back. Senior Advisor Required: No Allergies No Known Allergies [No Known Allergies*] Allergy (Verified 10/14/24 16:45) Medication List - Last Reconciled 10/14/24 by Marga Damon MD ascorbic acid (vitamin C) mg PO cholecalciferol (vitamin D3) 125 mcg PO DAILY ergocalciferol (vitamin D2) 1,250 mcg PO QWEEK pumpkin seed extract mg PO simvastatin 40 mg PO BEDTIME HPI HPI chronic cough: Details: 54 YEARS OLD GENTLEMAN COMES IN TODAY FOR PERSISTENT COUGH SINCE MAY OF THIS YEAR. HE IS MORBIDLY OBESE, PREVIOUSLY DIAGNOSED TO HAVE OBSTRUCTIVE SLEEP APNEA BACK IN 2021. HE HAS BEEN USING CPAP SINCE THEN AND DOING WELL. HIS PCP DR. TRIXIE CARREON HAS BEEN MANAGING HIS CPAP. IN MAY OF THIS YEAR HE SUFFERED FROM COVID INFECTION, AND AFTERWARDS HE STARTED HAVING COUGH, WHICH HAS NOT IMPROVED OR GONE AWAY SO FOR. THE COUGH IS MOSTLY DRY, NOT ASSOCIATED WITH WHEEZING, KEEPS ON BOTHERING HIM DURING THE WHOLE DAY WHEN HE IS WORKING. 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 HE DENIES A HISTORY OF ALLERGY TO ANY FRANCIS OF PLANS BEFORE THIS ONSET OF COUGH. THE COUGH , DISTINCTLY STARTED AFTER RECOVERING FROM COVID INFECTION. HE HAS BEEN SEEN IN URGENT CARE, AND ALSO BY HIS PCP, TREATED WITH ANTIBIOTIC TWICE, AND ALSO HAS BEEN TREATED WITH ALBUTEROL TO USE P.R.N.. HE STATES THAT LONG HE WAS ON ANTIBIOTIC HIS COUGH WAS REDUCED TO BY 50%, BUT THEN IT COMES BACK. HE HAD NO EFFECT FROM ALBUTEROL INHALER. PREVIOUSLY HE DOES NOT HAVE HISTORY OF ALLERGIC RHINITIS OR BRONCHIAL ASTHMA. [facility] Medical History (Updated 10/14/24 @ 16:56 by Marga Damon MD) Cough KELSEY (obstructive sleep apnea) Morbid obesity Surgical History History of discectomy (~2001) History of colonoscopy Social History Alcohol intake: current Alcohol intake frequency: holidays/special occasions only Alcohol type: beer Patient Tobacco Use Status: Never used Tobacco Second Hand Smoke Exposure: No Review of Systems Const All systems reviewed & are unremarkable except as noted in HPI and below Physical Exam Vital Signs: Last Vital Signs Pulse 92 10/14/24 16:08 BP 112/78 10/14/24 16:08 Pulse Ox 97 10/14/24 16:08 Oxygen Delivery Method Room Air 10/14/24 16:08 BMI result Body Mass Index 42.3 Const General: healthy appearing, comfortable, no acute distress, alert and awake Orientation/consciousness: patient oriented x3 HEENT Head: Yes normal to inspection General nose exam: No nasal polyps present and No nasal discharge present Face and sinus: Yes sinuses nontender Mouth: oropharynx normal Throat: No posterior oropharynx normal (NARROW, MALLAMPATI CLASS 3) Eyes General: appearance normal, both eyes and all related structures Neck Neck: Yes normal visual inspection, Yes no lymphadenopathy, Yes trachea midline and Yes no JVD Thyroid: Thyroid normal Chest Chest palpation & inspection: normal inspection of the chest, normal palpation of entire chest wall and no tenderness Resp Effort & Inspection: normal respiratory effort Auscultation: clear to auscultation bilaterally, no crackles, no wheezes and other (DID HAVE SOME COUGH DURING AUSCULTATION) Percussion: percussion normal Cardio Palpation: normal PMI Rate: regular rate Rhythm: regular rhythm Heart sounds: no gallops and no murmurs GI Palpation (GI): Soft to palpation, nontender, No hepatosplenomegaly present and no masses Auscultation: normal bowel sounds Back/Spine/Pelvis Thoracic/Lumbar Spine: thoracic and lumbar spine normal to inspection Skin General skin exam: no rashes or lesions noted Neuro General: patient oriented x3 and no focal motor deficits Cranial nerves: Yes CN's II-XII intact bilaterally Extrem General: Yes normal to inspection, Yes no clubbing, cyanosis or edema and Yes no calf tenderness Psych Appearance: grossly normal and well kempt Speech and movement: Normal speech and movement present Results Reviewed Results Reviewed: CHEST X-RAY ON 10/10 UNREMARKABLE. CBC ON 10/10 NORMAL Assessment & Plan Assessment & Plan (1) Cough: Comment: PER HISTORY IT SEEMS THAT HIS COUGH STARTED AFTER COVID INFECTION. MOST LIKELY MECHANISM SEEMS TO BE POSTINFECTIOUS REACTIVE AIRWAYS. Code(s): R05.9 - Cough, unspecified Category: Medical Plan: SCHEDULED FOR PULMONARY FUNCTION TEST TO CHECK FOR BRONCHIAL ASTHMA. WILL EMPIRICALLY TRY A COMBINATION OF ICS/LABA ( WIXELA 250-50 ONE INH BID ) ALSO ADVISED TO USE THE HUMIDIFIER DURING WINTER MONTHS. USE COUGH DROPS P.R.N.. WILL RECHECK IN 4-6 WEEKS. (2) KELSEY (obstructive sleep apnea): Comment: HE WAS DIAGNOSED TO HAVE OBSTRUCTIVE SLEEP APNEA IN 2021. HAS BEEN USING CPAP REGULARLY SINCE THEN AND SLEEPS WELL. THE CURRENT COMPLIANCE REPORT INDICATES THAT HE HAS USED 18/ 30 NIGHTS. THIS IS BECAUSE HE IS HAVING BOUTS OF COUGH AND HAS NOT BEEN ABLE TO USE THE CPAP FOR MANY DAYS. NORMALLY HIS COMPLIANCE HAS BEEN GOOD Code(s): G47.33 - Obstructive sleep apnea (adult) (pediatric) Category: Medical Plan: ADVISED TO CONTINUE USING THE CPAP. ALSO NEEDS TO LOSE WEIGHT. Medications: New fluticasone propion-salmeterol 250-50 mcg/dose 1 inh inhalation Q12H 30 days 60 ea 2RF COUGH - ASTHMA VARIANT Coding Level of Care Code Est Pt Level 4 (89757) Diagnoses Cough R05.9 KELSEY (obstructive sleep apnea) G47.33
== END 2024-10-14 16:45 | disposition home or self-care (01) ==
PROVIDERS: PCP Internal Medicine; Visit Provider Internal Medicine
DX: R05.9 Cough, unspecified (principal); G47.33 Obstructive sleep apnea (adult) (pediatric)
CPT/HCPCS: 99214

== ENCOUNTER 2024-11-07 11:33 | Outpatient (REF) | payer OTHER, SELFPAY ==
[2024-11-07 09:22] VITALS: PULSE 84; O2SAT 98
--- NOTE | 2024-11-07 11:50 | PFT_ITS ---
Indication: Always having Spirometry [FEV1 to FVC 82%; FEV1 3.91 L. ; FVC 4.8 L. No significant response to bronchodilators noted.] Lung Volumes [Total lung capacity 113% predicted; residual volume 153% predicted] Diffusion Capacity [DLCO 112% predicted] Comparisons [None] Interpretation [No obstructive nor restrictive ventilatory defects identified. No significant response to bronchodilators noted. The patient appears to have a trend of hyperinflation and significant air trapping likely secondary to small airways disease. Diffusing capacity is within normal limits. If asthma isn't differential methacholine challenge may be helpful for assessing for hyperactive airways. Otherwise clinical correlation warranted.] MTDD
== END 2024-11-07 11:34 | disposition home or self-care (01) ==
LOC: HO.RESP 11:33
PROVIDERS: PCP Internal Medicine; Visit Provider Internal Medicine
DX: G47.33 Obstructive sleep apnea (adult) (pediatric) (principal); R05.9 Cough, unspecified
CPT/HCPCS: 94010; 94640; 94727; 94729

== ENCOUNTER → 2024-11-07 11:50 | Outpatient (BNV) | payer OTHER, SELFPAY | PROVIDERS: PCP Internal Medicine; Visit Provider Hospitalist | DX: R05.9 Cough, unspecified (principal); G47.33 Obstructive sleep apnea (adult) (pediatric) | CPT/HCPCS: 94060; 94727; 94729 ==

== ENCOUNTER 2024-11-17 15:25 | Outpatient (AMB) | payer OTHER, SELFPAY ==
--- NOTE | 2024-11-17 15:36 | A.OFFVIS_ITS ---
Vital Signs 11/17/24 15:38 Height 5 ft 7 in Weight 268 lb 15.423 oz BMI 42.1 BP 130/68 Blood Pressure Location Lt brachial Position Sitting Pulse 85 Pulse Source Pulse Oximeter Pulse Oximetry (%) 97 Oxygen Delivery Method Room Air Intake Visit Reasons: Cough/PFT Follow Up Intake Note: pt is here for follow up and results of pft, cough is a lot less, biggest thing congestion that occurs throughout the day, his throat is affected by phelgm. 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 Since his last visit using Wixela 250-50. , one inhalation b.i.d. his cough has decreased to minimal. Denies shortness of breath on exertion. Continues to use his CPAP very regularly and sleeps well. He uses fullface mask and wonders if he could use nasal mask. At the same time he also complains of some nasal congestion and is most likely a mouth breather. Had his pulmonary function test, which was essentially normal. [facility] Medical History (Updated 11/17/24 @ 16:45 by Marga Damon MD) Allergic rhinitis Reactive airway disease Cough KELSEY (obstructive sleep apnea) Morbid obesity Surgical History History of discectomy (~2001) History of colonoscopy Social History Alcohol intake: current Alcohol intake frequency: holidays/special occasions only Alcohol type: beer Patient Tobacco Use Status: Never used Tobacco Second Hand Smoke Exposure: No Review of Systems Const All systems reviewed & are unremarkable except as noted in HPI and below Eyes Reports no additional complaints ENT Reports nasal congestion (mild) Card Denies chest pain, Denies syncope and Denies irregular heart rhythm Resp Reports as per HPI GI Reports no additional complaints Reports no additional complaints Musc Reports no additional complaints Skin/Breast Reports system reviewed and no additional complaints, except as documented Neuro Reports no additional complaints and Denies syncope Psych Reports no additional complaints Endo Reports no additional complaints Physical Exam Vital Signs: Last Vital Signs Pulse 85 11/17/24 15:38 BP 130/68 11/17/24 15:38 Pulse Ox 97 11/17/24 15:38 Oxygen Delivery Method Room Air 11/17/24 15:38 BMI result Body Mass Index 42.1 Const General: healthy appearing, comfortable, no acute distress, alert and awake Orientation/consciousness: patient oriented x3 HEENT Head: Yes normal to inspection General nose exam: No nasal polyps present and No nasal discharge present Face and sinus: Yes sinuses nontender Mouth: oropharynx normal Throat: No posterior oropharynx normal (NARROW, MALLAMPATI CLASS 3) Eyes General: appearance normal, both eyes and all related structures Neck Neck: Yes normal visual inspection, Yes no lymphadenopathy, Yes trachea midline and Yes no JVD Thyroid: Thyroid normal Chest Chest palpation & inspection: normal inspection of the chest, normal palpation of entire chest wall and no tenderness Resp Effort & Inspection: normal respiratory effort Auscultation: clear to auscultation bilaterally, no crackles, no wheezes and other (DID HAVE SOME COUGH DURING AUSCULTATION) Percussion: percussion normal Cardio Palpation: normal PMI Rate: regular rate Rhythm: regular rhythm Heart sounds: no gallops and no murmurs GI Palpation (GI): Soft to palpation, nontender, No hepatosplenomegaly present and no masses Auscultation: normal bowel sounds Back/Spine/Pelvis Thoracic/Lumbar Spine: thoracic and lumbar spine normal to inspection Skin General skin exam: no rashes or lesions noted Neuro General: patient oriented x3 and no focal motor deficits Cranial nerves: Yes CN's II-XII intact bilaterally Extrem General: Yes normal to inspection, Yes no clubbing, cyanosis or edema and Yes no calf tenderness Psych Appearance: grossly normal and well kempt Speech and movement: Normal speech and movement present Results Reviewed Results Reviewed: Pulmonary function test normal , there was no obstructive or restrictive lung disease. . No response to bronchodilator therapy Compliance report for the last 30 nights shows that he has used 27 nights missed 3 nights because he was overly busy. Average use it per night 5 hours 35 minutes. He has borderline air leak. Residual AHI 1.1 Assessment & Plan Assessment & Plan (1) Cough: Comment: Cough is most likely secondary to reactive airways, and mild chronic allergy of the upper airways. It gets worse each time he has any upper respiratory infection and lingers on for several weeks. Code(s): R05.9 - Cough, unspecified Category: Medical Plan: Explained to him and advise that he can use the Wixela 250-51 inhalation b.i.d. only p.r.n. if cough gets worse. May also use Ventolin 2 puffs Q 6 hours p.r.n. if coughs gets any worse (2) Morbid obesity: Comment: BMI= 40.1 SINCE LAST YEAR HE HAS LOST ABOUT 20 LB OF WEIGHT. BUT HE IS STILL GROSSLY OBESE. ENCOURAGED TO KEEP ON LOSING MORE WEIGHT BY RESTRICTING THE CALORIES INTAKE AND BY WALKING EVERY DAY. Code(s): E66.01 - Morbid (severe) obesity due to excess calories Category: Medical Plan: Discussed about the weight and I stress that he must try to lose 10-20 lb of weight. Importance of watching. Diet and daily exercise is explained (3) KELSEY (obstructive sleep apnea): Comment: HE WAS DIAGNOSED TO HAVE OBSTRUCTIVE SLEEP APNEA IN 2021. HAS BEEN USING CPAP REGULARLY SINCE THEN AND SLEEPS WELL. THE CURRENT COMPLIANCE REPORT INDICATES THAT HE HAS USED 27/ 30 NIGHTS. He has only borderline leak and there is no residual sleep apnea NORMALLY HIS COMPLIANCE HAS BEEN GOOD Code(s): G47.33 - Obstructive sleep apnea (adult) (pediatric) Category: Medical Plan: Commended for good compliance and advised to keep on using CPAP regularly. Discussed about the nasal vs fullface mask. As he tends to be mouth breather I think he should continue with ful face mask. Use adequate amount of humidification. (4) Reactive airway disease: Comment: He does not have evidence of bronchial asthma. His history is consistent with reactive airways. Usually it is aggravated after any upper respiratory infection and he gets post infectious cough which lingers on for 8-12 weeks. He also has low-grade upper airway allergy issue. Code(s): J45.909 - Unspecified asthma, uncomplicated Category: Medical Plan: Use Wixela 250-51 inhalation b.i.d. only p.r.n. with the cough gets any worse (5) Allergic rhinitis: Comment: His symptoms are suggestive of chronic low-grade upper airway allergies. He works with [employer]. But he does not have any distinct allergy to. Anyone of the plans of lowers Code(s): J30.9 - Allergic rhinitis, unspecified Category: Medical Plan: Advise that he can try using Flonase 2 spray in each nostril daily. And also use Claritin or cetirizine 10 mg half or 1 tablet once a day only. p.r.n. if symptoms get any worse Coding Level of Care Code Est Pt Level 3 (61886) Diagnoses Cough R05.9 Morbid obesity E66.01 KELSEY (obstructive sleep apnea) G47.33 Reactive airway disease J45.909 Allergic rhinitis J30.9
[2024-11-17 15:38] VITALS: BP 130/68; PULSE 85; O2SAT 97; BMI 42.1
== END 2024-11-17 16:04 | disposition home or self-care (01) ==
PROVIDERS: PCP Internal Medicine; Visit Provider Internal Medicine
DX: R05.9 Cough, unspecified (principal); E66.01 Morbid (severe) obesity due to excess calories; G47.33 Obstructive sleep apnea (adult) (pediatric); J45.909 Unspecified asthma, uncomplicated; J30.9 Allergic rhinitis, unspecified
CPT/HCPCS: 99213

== ENCOUNTER → 2024-11-17 15:25 | Outpatient (BNVA) | payer OTHER, SELFPAY | PROVIDERS: PCP Internal Medicine; Visit Provider Internal Medicine ==

== ENCOUNTER 2025-05-13 13:08 | Outpatient (AMB) | payer OTHER, SELFPAY ==
--- NOTE | 2025-05-13 13:08 | A.OFFPC_ITS ---
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 Accompanied by: Self / Same As Patient Allergies No Known Allergies (No Known Allergies*) Allergy (Verified 05/13/25 13:32) Medication List - Last Reconciled 05/13/25 by Denise Toscano PA-C ascorbic acid (vitamin C) mg PO cholecalciferol (vitamin D3) 125 mcg PO DAILY ergocalciferol (vitamin D2) 1,250 mcg PO QWEEK pumpkin seed extract mg PO simvastatin 40 mg PO BEDTIME Tobacco use date assessed: 05/13/25 Dental Screening Dental Screen Date: 05/13/25 Did you have a dental visit in the last 12 months?: No Did you have a dental problem in the last 6 months where you did not have access to dental care?: No Was dental information given to patient?: Patient has dentist HPI 6 month follow up HPI Details The patient is a 55-year-old male presenting for new patient appointment as patient was a Dr. De La Paz's patient Dr. De La Paz retired in November. He was scheduled for a follow-up appointment and management of chronic conditions prior to Dr. De La Paz's residential. He reports a history of vitiligo, which initially affected only his head but has since spread to his arms, hands, and feet. The condition is more noticeable during the summer months when his skin tans. The patient experiences pruritus of the feet and ankles, primarily occurring at night without any visible rash. He denies any changes in detergents or bedding materials that could explain the symptoms. The patient has a history of elevated liver enzymes, with AST and ALT levels no chelsey to be 44 and 87, respectively, in October. These levels have shown some fluctuation over time, potentially influenced by statin use. He has been diagnosed with hyperlipidemia, with a total cholesterol level of 222 mg/dL and LDL cholesterol at 153 mg/dL. The patient is currently on simvastatin, which was previously reduced from 80 mg to 40 mg but will be increased back to 80 mg due to persistent hyperlipidemia. The patient has obstructive sleep apnea and uses a CPAP machine regularly. He also has Chiari malformation type 1, which is monitored with periodic imaging to assess for progression. The patient has a history of vitamin D deficiency and is on supplementation. Recent blood work indicated a fasting glucose level of 113 mg/dL and an A1c of 5.4%, which is a normal range at this time. Social History - Occupation: [employer] - Pets: Owns three small dogs [facility] Medical History (Updated 05/13/25 @ 14:07 by Denise Toscano PA-C) Body mass index [BMI] 40.0-44.9, adult Elevated glucose level Hyperlipidemia Elevated ALT measurement Elevated AST (SGOT) Pruritic condition Vitiligo History of herniated intervertebral disc Plantar fasciitis Androgenic alopecia Chiari malformation type I Elevated LFTs Chronic low back pain Osteoarthritis GERD (gastroesophageal reflux disease) Vitamin D deficiency Herpes zoster Pure hypercholesterolemia, unspecified History of memory loss Unspecified hearing loss, unspecified ear Establishing care with new doctor, encounter for Allergic rhinitis Reactive airway disease Cough KELSEY (obstructive sleep apnea) Morbid obesity Surgical History History of discectomy (~2001) History of colonoscopy (~01/10/21) Family History Father High cholesterol High blood pressure Seizure Family history of prostate problems Mother High cholesterol Palpitations Social History Housing: House Alcohol intake: current Alcohol intake frequency: holidays/special occasions only Alcohol type: beer Patient Tobacco Use Status: Never used Tobacco Second Hand Smoke Exposure: No service: No Current occupational status: employed Cognitive needs: No Hearing needs: No Vision needs: Yes (rx glasses) Questionnaire PHQ-9 Over the last 2 weeks, how often have you been bothered by any of the following problems? 1. Little interest or pleasure in doing things: not at all 2. Feeling down, depressed, or hopeless: not at all 3. Trouble falling or staying asleep, or sleeping too much: not at all 4. Feeling tired or having little energy: not at all 5. Poor appetite or overeating: not at all 6. Feeling bad about yourself - or that you are a failure or have let yourself or your family down: not at all 7. Trouble concentrating on things, such as reading the newspaper or watching television: not at all 8. Moving or speaking so slowly that other people could have noticed. Or the opposite - being so fidgety or restless that you have been moving around a lot more than usual: not at all 9. Thoughts that you would be better off or of hurting yourself in some way : not at all Total score: 0 Depression Screening Interpretation: Negative Depression Screening Done: Yes 31290 - PHQ-9 Billing: Yes Source: Developed by Drs. Pardeep Victoria, Bryanna Yuan, Jose Elias Ram and colleagues, with an educational selma from [employer]. Thrive Questionnaire Date Thrive assessed: 05/13/25 I am a: Patient What is your living situation today?: I have a steady place to live Within the past 12 months, did the food you bought not last and you didn't have the money to get more?: Never true Within the past 12 months, did you worry whether your food would run out before you got money to buy more?: Never true Do you have trouble paying for medicines?: No Do you have trouble getting transportation to medical appointments?: No Do you have trouble paying your heating and electricity bill?: No Do you have trouble taking care of your child, family member or friend?: No Do you have trouble with day-to-day activities such as bathing, preparing meals, shopping, managing finances, etc.?: No Are you currently unemployed and looking for a job?: No Are you interested in more education?: No Please select the resources that you would like help with: None Currently or been in a relationship where the following occur: No concerns reported THRIVE Score: 0 AUDIT C Alcohol Use Questionnaire (AUDIT-C) 1. How often do you have a drink containing alcohol?: Monthly or less 2. How many drinks containing alcohol do you have on a typical day when you are drinking?: 1 or 2 3. How often do you have six or more drinks on one occasion?: Never Total Score: 1 Score Reviewed/Action Taken: No CALIN-7 AMB Questionnaire CALIN-7 Date CALIN - 7 assessed: 05/13/25 Feeling nervous, anxious, or on edge: 0 = Not at all Not being able to stop or control worryin = Not at all Worrying too much about different things: 0 = Not at all Trouble relaxin = Not at all Being so restless that it is hard to sit still: 0 = Not at all Becoming easily annoyed or irritable: 0 = Not at all Feeling afraid as if something awful might happen: 0 = Not at all Total CALIN-7 score (0-4 normal; 5-9 mild; 10-14 moderate; 15-21 severe): 0 Source: Developed by Drs. Pardeep Victoria, Bryanna Yuan, Jose Elias Ram and colleagues, with an educational selma from [employer]. CALIN-7 Assessment Billing CALIN-7 Assessment Tool: CALIN-7 Assessment 14971 Review of Systems Const Details: - Dermatological: Reports vitiligo affecting head, arms, hands, and feet. Reports pruritus of feet and ankles at night. - Endocrine: Denies new changes in detergents or bedding materials. - Cardiovascular: Denies chest pain. - Respiratory: Denies shortness of breath. Physical exam (Primary Care) Vital Signs: Last Vital Signs Temp 97.3 F 05/13/25 13:14 Pulse 83 05/13/25 13:14 Resp 20 05/13/25 13:14 BP 120/80 05/13/25 13:14 Pulse Ox 98 05/13/25 13:14 Oxygen Delivery Method Room Air 05/13/25 13:14 Care Plan Goal for BP management: <140/90 at Goal BMI result Body Mass Index 43.3 BMI Assessment/Plan discussion: High BMI High, discussed plan: lifestyle, weight reduction, dietary, physical activity and alcohol moderation Tobacco/Smoking Status: Tobacco use Status Tobacco use date assessed 05/13/25 05/13/25 13:24 Patient Tobacco Use Status Never used Tobacco 05/13/25 13:24 PHQ-9: PHQ-9 Score PHQ-9: Total score 0 05/13/25 13:32 Depression Screening Interpretation: Negative Thrive Assessment: Date of Thrive Assessment Date Thrive assessed 05/13/25 05/13/25 13:24 Currently or been in a relationship where the following occur: No concerns reported Const Other: Appearance: Alert. Oriented X3. No acute distress. Head: Normal external exam. Normocephalic. Atraumatic. Eyes: Pupils are equal, round, and reactive to light. Extraocular movements intact. Conjunctiva and sclera normal. Eyelids normal. Ears: External auditory canal normal. Tympanic membranes normal. Throat: Pharynx normal. Uvula midline. Moist mucous membranes. Neck: Normal inspection. Neck supple. Full range of motion. No adenopathy. Thyroid Normal. No meningeal signs. No neck mass noted. Cardiovascular: Normal heart rate and rhythm. Heart sound normal. No murmurs noted. Pulses normal throughout. Respiratory: No respiratory distress. Painless inspiration. Breath sounds normal. No wheezes/rales/rhonchi noted. Chest nontender. No accessory muscle usage noted or decreased air movement noted. Abdomen: Soft and nontender. Bowel sounds normal in all 4 quadrants. No distention noted. No organomegaly noted. No visible injury noted. Back: No costovertebral angle tenderness. Full range of motion noted. Skin: Skin warm and dry. Normal skin color. Normal skin turgor. No rashes/lesions/lacerations noted. However, patient reports itching on feet and ankles, especially at night, with no visible rash. Extremities: No lower extremity edema. Extremities exhibit normal range of motion. Extremities nontender. Notable callus on foot. Neuro: Oriented X 3. No motor deficit. No sensory deficit. Reflexes normal. Results AMB Hemoglobin A1c AMB Hemoglobin A1c 5.4 % Last Edit by BRIE Morrow on 05/13/25 13:51 Results Reviewed Results Reviewed: - Labs: AST 44 U/L, ALT 87 U/L, Total cholesterol 222 mg/dL, LDL 153 mg/dL, Fasting glucose 113 mg/dL, A1c 5.4% Coding Level of Care Code New Pt Level 4 (34009) Complex EM visit Add On G2211 Diagnoses Establishing care with new doctor, encounter for Z76.89 Vitiligo L80 Pruritic condition L29.9 Elevated AST (SGOT) R74.01 Elevated ALT measurement R74.01 Hyperlipidemia E78.5 Pure hypercholesterolemia, unspecified E78.00 KELSEY (obstructive sleep apnea) G47.33 Chiari malformation type I G93.5 Vitamin D deficiency E55.9 Elevated glucose level R73.09 Body mass index [BMI] 40.0-44.9, adult Z68.41 Additional Codes PHQ-9 - 72655 - PHQ-9 Billing: Yes ([id number]) CALIN-7 Assessment Billing - CALIN-7 Assessment Tool: CALIN-7 Assessment 10048 ([id number]) Assessment & Plan Assessment & Plan (1) Establishing care with new doctor, encounter for: Code(s): Z76.89 - Persons encountering health services in other specified circumstances Category: Medical (2) Vitiligo: Code(s): L80 - Vitiligo Category: Medical Plan: The patient will be referred to dermatology for further evaluation and management of vitiligo, which has spread to multiple areas including the arms, hands, and feet. (3) Pruritic condition: Code(s): L29.9 - Pruritus, unspecified Category: Medical Plan: A topical steroid cream will be prescribed to manage the pruritus of the feet and ankles, with instructions to avoid application on areas affected by fungal infections. (4) Elevated AST (SGOT): Code(s): R74.01 - Elevation of levels of liver transaminase levels Category: Medical Plan: The elevated liver enzymes will be monitored, and the patient is advised to be cautious with the use of Advil in conjunction with simvastatin. (5) Elevated ALT measurement: Code(s): R74.01 - Elevation of levels of liver transaminase levels Category: Medical Plan: The elevated liver enzymes will be monitored, and the patient is advised to be cautious with the use of Advil in conjunction with simvastatin. (6) Hyperlipidemia: Code(s): E78.5 - Hyperlipidemia, unspecified Category: Medical Plan: The patient's simvastatin dosage will be increased to 80 mg to better manage hyperlipidemia, with follow-up lipid panel testing planned for the next visit. (7) Pure hypercholesterolemia, unspecified: Code(s): E78.00 - Pure hypercholesterolemia, unspecified Category: Medical Plan: The patient's simvastatin dosage will be increased to 80 mg to better manage hyperlipidemia, with follow-up lipid panel testing planned for the next visit. (8) KELSEY (obstructive sleep apnea): Comment: HE WAS DIAGNOSED TO HAVE OBSTRUCTIVE SLEEP APNEA IN 2021. HAS BEEN USING CPAP REGULARLY SINCE THEN AND SLEEPS WELL. THE CURRENT COMPLIANCE REPORT INDICATES THAT HE HAS USED 27/ 30 NIGHTS. He has only borderline leak and there is no residual sleep apnea NORMALLY HIS COMPLIANCE HAS BEEN GOOD Code(s): G47.33 - Obstructive sleep apnea (adult) (pediatric) Category: Medical Plan: The patient will continue using the CPAP machine for obstructive sleep apnea management. (9) Chiari malformation type I: Code(s): G93.5 - Compression of brain Category: Medical Plan: Periodic imaging will be conducted to monitor the Chiari malformation type 1 for any progression. (10) Vitamin D deficiency: Code(s): E55.9 - Vitamin D deficiency, unspecified Category: Medical Plan: The patient will continue vitamin D supplementation to address the deficiency. (11) Elevated glucose level: Code(s): R73.09 - Other abnormal glucose Category: Medical Plan: The patient's blood glucose levels will be monitored, and lifestyle modifications will be encouraged to prevent progression to diabetes. (12) Body mass index [BMI] 40.0-44.9, adult: Code(s): Z68.41 - Body mass index [BMI] 40.0-44.9, adult Category: Medical Plan: Patient to improve diet and exercise regimen. Condition is chronic and stable will continue to monitor. Plan Plan Patient was informed and verbally consented to the use of an ambient scribe for clinic note documentation during this visit. 1. Vitiligo The patient will be referred to dermatology for further evaluation and management of vitiligo, which has spread to multiple areas including the arms, hands, and feet. 2. Pruritus Of Feet And Ankles A topical steroid cream will be prescribed to manage the pruritus of the feet and ankles, with instructions to avoid application on areas affected by fungal infections. 3. Elevated Liver Enzymes The elevated liver enzymes will be monitored, and the patient is advised to be cautious with the use of Advil in conjunction with simvastatin. 4. Hyperlipidemia The patient's simvastatin dosage will be increased to 80 mg to better manage hyperlipidemia, with follow-up lipid panel testing planned for the next visit. 5. Obstructive Sleep Apnea The patient will continue using the CPAP machine for obstructive sleep apnea management. 6. Chiari Malformation Type 1 Periodic imaging will be conducted to monitor the Chiari malformation type 1 for any progression. 7. Vitamin D Deficiency The patient will continue vitamin D supplementation to address the deficiency. 8. Prediabetes The patient's blood glucose levels will be monitored, and lifestyle modifications will be encouraged to prevent progression to diabetes. During the visit, I discussed with the patient the management of his vitiligo and the need for a dermatology referral. We reviewed the importance of monitoring liver enzymes due to statin use and advised caution with Advil. The plan to increase simvastatin dosage was explained to address hyperlipidemia. I also emphasized the significance of using the CPAP machine for obstructive sleep apnea and continuing vitamin D supplementation. We discussed lifestyle modifications to manage prediabetes and the need for periodic imaging for Chiari malformation type 1. Orders: Orders AMB Hemoglobin A1c Today Z13.9 - Encounter for screening, unspecified Referrals Dermatology Referral L80 - Vitiligo Medications: New clotrimazole 1% 1 appl topical Q8H 56.7 grams 3RF hydrocortisone 2.5% 1 appl topical BID-TID PRN 454 grams 1RF itching Changed From simvastatin 40 mg PO BEDTIME To simvastatin 80 mg PO BEDTIME Patient Instructions: - Follow up with dermatology for vitiligo management. - Apply prescribed topical steroid cream to feet and ankles, avoiding areas with fungal infections. - Monitor liver enzyme levels and avoid excessive use of Advil. - Increase simvastatin dosage to 80 mg as directed. - Continue using CPAP machine nightly. - Maintain vitamin D supplementation. - Implement lifestyle changes to manage blood glucose levels.
[2025-05-13 13:14] VITALS: BP 120/80; PULSE 83; RESP 20; TEMP 36.3; O2SAT 98; BMI 43.3
== END 2025-05-13 13:55 | disposition home or self-care (01) ==
LOC: HO.HMCSH 13:08
PROVIDERS: PCP Internal Medicine; Visit Provider Physician Assistant Medical
DX: Z76.89 Persons encountering health services in other specified circumstances (principal); L80 Vitiligo; L29.9 Pruritus, unspecified; R74.01 Elevation of levels of liver transaminase levels; E78.5 Hyperlipidemia, unspecified; E78.00 Pure hypercholesterolemia, unspecified; G47.33 Obstructive sleep apnea (adult) (pediatric); G93.5 Compression of brain; E55.9 Vitamin D deficiency, unspecified; R73.09 Other abnormal glucose; Z68.41 Body mass index [BMI] 40.0-44.9, adult; Z13.9 Encounter for screening, unspecified

== ENCOUNTER → 2025-05-13 13:08 | Outpatient (BNVA) | payer OTHER, SELFPAY | PROVIDERS: PCP Internal Medicine; Visit Provider Physician Assistant Medical | DX: Z76.89 Persons encountering health services in other specified circumstances (principal); L80 Vitiligo; L29.9 Pruritus, unspecified; R74.01 Elevation of levels of liver transaminase levels; E78.00 Pure hypercholesterolemia, unspecified; G47.33 Obstructive sleep apnea (adult) (pediatric); G93.5 Compression of brain; E55.9 Vitamin D deficiency, unspecified; R73.09 Other abnormal glucose; Z99.89 Dependence on other enabling machines and devices; Z13.31 Encounter for screening for depression; Z13.30 Encounter for screening examination for mental health and behavioral disorders, unspecified | CPT/HCPCS: 83036; 96127 ==

== ENCOUNTER 2025-05-19 15:21 | Outpatient (AMB) | payer OTHER, SELFPAY ==
[2025-05-19 15:22] VITALS: BP 110/64; PULSE 90; O2SAT 97; BMI 42.9
--- NOTE | 2025-05-19 15:22 | MHC.OFFVIS ---
Vital Signs 05/19/25 15:22 Height 5 ft 7 in Weight 274 lb BMI 42.9 BP 110/64 Blood Pressure Location Rt brachial Position Sitting Pulse 90 Pulse Source Pulse Oximeter Pulse Oximetry (%) 97 Oxygen Delivery Method Room Air Intake Visit Reasons: Cough Intake Note: Patient is here for a routine follow up, reports no symptoms, patient is using his CPAP with no problems. 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 HE USES CPAP VERY REGULARLY EVERY NIGHT AND SLEEPS WELL. THERE IS NO ISSUE WITH THE CPAP MASK OR CPAP DEVICE. SLEEPS GOOD FOR AT LEAST 6 TO 7 HOURS PER NIGHT. BREATHING STATUS HAS REMAINED STABLE AND HE ACTUALLY USES WIXELA 250-50 ONLY ONCE IN A WHILE. WEIGHT HAS NOT CHANGED MUCH . [facility] Medical History Body mass index [BMI] 40.0-44.9, adult Elevated glucose level Hyperlipidemia Elevated ALT measurement Elevated AST (SGOT) Pruritic condition Vitiligo History of herniated intervertebral disc Plantar fasciitis Androgenic alopecia Chiari malformation type I Elevated LFTs Chronic low back pain Osteoarthritis GERD (gastroesophageal reflux disease) Vitamin D deficiency Herpes zoster Pure hypercholesterolemia, unspecified History of memory loss Unspecified hearing loss, unspecified ear Establishing care with new doctor, encounter for Allergic rhinitis Reactive airway disease Cough KELSEY (obstructive sleep apnea) Morbid obesity Surgical History History of discectomy (~2001) History of colonoscopy (~01/10/21) Family History Father High cholesterol High blood pressure Seizure Family history of prostate problems Mother High cholesterol Palpitations Social History Housing: House Alcohol intake: current Alcohol intake frequency: holidays/special occasions only Alcohol type: beer Patient Tobacco Use Status: Never used Tobacco Second Hand Smoke Exposure: No service: No Current occupational status: employed Cognitive needs: No Hearing needs: No Vision needs: Yes (rx glasses) Review of Systems Const All systems reviewed & are unremarkable except as noted in HPI and below Eyes Reports no additional complaints ENT Reports nasal congestion (mild) Card Denies chest pain, Denies syncope and Denies irregular heart rhythm Resp Reports as per HPI GI Reports no additional complaints Reports no additional complaints Musc Reports no additional complaints Skin/Breast Reports system reviewed and no additional complaints, except as documented Neuro Reports no additional complaints and Denies syncope Psych Reports no additional complaints Endo Reports no additional complaints Physical Exam Vital Signs: Last Vital Signs Pulse 90 05/19/25 15:22 BP 110/64 05/19/25 15:22 Pulse Ox 97 05/19/25 15:22 Oxygen Delivery Method Room Air 05/19/25 15:22 BMI result Body Mass Index 42.9 Const General: healthy appearing, comfortable, no acute distress, alert and awake Orientation/consciousness: patient oriented x3 HEENT Head: Yes normal to inspection General nose exam: No nasal polyps present and No nasal discharge present Face and sinus: Yes sinuses nontender Mouth: oropharynx normal Throat: No posterior oropharynx normal (NARROW, MALLAMPATI CLASS 3) Eyes General: appearance normal, both eyes and all related structures Neck Neck: Yes normal visual inspection, Yes no lymphadenopathy, Yes trachea midline and Yes no JVD Thyroid: Thyroid normal Chest Chest palpation & inspection: normal inspection of the chest, normal palpation of entire chest wall and no tenderness Resp Effort & Inspection: normal respiratory effort Auscultation: clear to auscultation bilaterally, no crackles, no wheezes and other (DID HAVE SOME COUGH DURING AUSCULTATION) Percussion: percussion normal Cardio Palpation: normal PMI Rate: regular rate Rhythm: regular rhythm Heart sounds: no gallops and no murmurs GI Palpation (GI): Soft to palpation, nontender, No hepatosplenomegaly present and no masses Auscultation: normal bowel sounds Back/Spine/Pelvis Thoracic/Lumbar Spine: thoracic and lumbar spine normal to inspection Skin General skin exam: no rashes or lesions noted Neuro General: patient oriented x3 and no focal motor deficits Cranial nerves: Yes CN's II-XII intact bilaterally Extrem General: Yes normal to inspection, Yes no clubbing, cyanosis or edema and Yes no calf tenderness Psych Appearance: grossly normal and well kempt Speech and movement: Normal speech and movement present Results Reviewed Results Reviewed: COMPLIANCE REPORT FOR THE LAST 30 NIGHTS IS REVIEWED AND HE HAS USED 28/30 NIGHTS, 93%. AVERAGE USE IT PER NIGHT 5 HOURS 51 MINUTES. PRESSURE USED MOSTLY 7-9 CM. THERE IS VERY LIT.TLE AIR L EAK RESIDUAL AHI 0.9 Assessment & Plan Assessment & Plan (1) Morbid obesity: Comment: BMI= 42.9 AGAIN HAS GAINED A FEW LB OF WEIGHT. Code(s): E66.01 - Morbid (severe) obesity due to excess calories Category: Medical Plan: DISCUSSED ABOUT THE WEIGHT ISSUE. I ENCOURAGED HIM TO REDUCE THE INTAKE OF CALORIES. ALSO ENCOURAGED HIM TO WALK AT LEAST 2 MILES EVERY DAY. (2) KELSEY (obstructive sleep apnea): Comment: HE WAS DIAGNOSED TO HAVE OBSTRUCTIVE SLEEP APNEA IN 2021. HAS BEEN USING CPAP REGULARLY SINCE THEN AND SLEEPS WELL. THE CURRENT COMPLIANCE REPORT INDICATES THAT HE HAS USED 28/ 30 NIGHTS. RESIDUAL AHI ONLY 0.9 Code(s): G47.33 - Obstructive sleep apnea (adult) (pediatric) Category: Medical Plan: COMMENDED FOR GOOD COMPLIANCE AND ADVISED TO KEEP ON USING THE CPAP REGULARLY EVERY NIGHT . (3) Reactive airway disease: Comment: He does not have evidence of bronchial asthma. His history is consistent with reactive airways. post COVID infection. currently he does not have any cough or wheezing. Code(s): J45.909 - Unspecified asthma, uncomplicated Category: Medical Plan: advised to keep Wixela 250-50 on hand and use 1 inhalation twice a day only p.r.n. if he starts having any bouts of cough. Coding Level of Care Code Est Pt Level 3 (97676) Diagnoses Morbid obesity E66.01 KELSEY (obstructive sleep apnea) G47.33 Reactive airway disease J45.909
== END 2025-05-19 15:47 | disposition home or self-care (01) ==
LOC: HO.HPS 15:21
PROVIDERS: PCP Internal Medicine; Visit Provider Internal Medicine
DX: E66.01 Morbid (severe) obesity due to excess calories (principal); G47.33 Obstructive sleep apnea (adult) (pediatric); J45.909 Unspecified asthma, uncomplicated
CPT/HCPCS: 99213

== ENCOUNTER 2025-09-22 15:01 | Outpatient (AMB) | payer OTHER, SELFPAY ==
--- NOTE | 2025-09-22 15:11 | A.OFFPC_ITS ---
Vital Signs 09/22/25 15:17 Height 5 ft 7 in Weight 268 lb 0.4 oz BMI 42.0 BP 128/69 Blood Pressure Location Lt brachial Position Sitting Pulse 84 Pulse Source Pulse Oximeter Temp 97.4 F Pulse Oximetry (%) 97 Intake Visit Reasons: 4 month follow up Intake Note: Right eye starts leaking going of for a couple of weeks Allergies No Known Allergies (No Known Allergies*) Allergy (Verified 09/22/25 16:33) Medication List - Last Reconciled 09/22/25 by Denise Toscano PA-C cholecalciferol (vitamin D3) 125 mcg PO DAILY clobetasol 0.05% 1 appl topical BID 2 weeks clotrimazole 1% 1 appl topical Q8H ergocalciferol (vitamin D2) 1,250 mcg PO QWEEK erythromycin 1 appl ophthalmic (eye) Q8H hydrocortisone 2.5% 1 appl topical BID-TID PRN simvastatin 80 mg PO BEDTIME 90 days Tobacco use date assessed: 05/13/25 Dental Screening Dental Screen Date: 09/22/25 Did you have a dental visit in the last 12 months?: No Did you have a dental problem in the last 6 months where you did not have access to dental care?: No Was dental information given to patient?: Patient has dentist HPI HPI Comments History of Present Illness Details History of Present Illness The patient is a 55-year-old male presenting for a follow-up for prediabetes, vitiligo, and evaluation of abdominal cramping and right eye swelling. His last physical was in October of the previous year. The patient has a history of vitiligo, for which he has seen a x ray technologist. He reports that treatment is an uphill em and the condition fades in the winter when he is not [place]. He also mentions that pruritus on his feet has subsided. For years, the patient has experienced intermittent cramping on his right side of his abdomen, which he describes as a muscle cramp that occurs before bed and lasts 10-15 minutes. He denies it is related to eating. His liver enzymes have been noted to be slightly elevated. For the past one to two months, he has had swelling and a sensation of leaking in his right eye. Regarding his health maintenance, lab work from October of the previous year showed a total cholesterol of 222 mg/dL, LDL of 153 mg/dL, and low vitamin D. His last colonoscopy was in 2020 and is due on a 5-year interval. Social History - Employment: The patient works with [employer] imported from other countries and is exposed to chemicals. - Habits: Drinks a ton of coffee. [facility] Medical History (Updated 09/22/25 @ 16:37 by Denise Toscano PA-C) Prediabetes Healthcare maintenance Blepharitis Intermittent abdominal pain Body mass index [BMI] 40.0-44.9, adult Elevated glucose level Hyperlipidemia Elevated ALT measurement Elevated AST (SGOT) Pruritic condition Vitiligo History of herniated intervertebral disc Plantar fasciitis Androgenic alopecia Chiari malformation type I Elevated LFTs Chronic low back pain Osteoarthritis GERD (gastroesophageal reflux disease) Vitamin D deficiency Herpes zoster Pure hypercholesterolemia, unspecified History of memory loss Unspecified hearing loss, unspecified ear Establishing care with new doctor, encounter for Allergic rhinitis Reactive airway disease Cough KELSEY (obstructive sleep apnea) Morbid obesity Surgical History History of discectomy (~2001) History of colonoscopy (~01/10/21) Family History Father High cholesterol High blood pressure Seizure Family history of prostate problems Mother High cholesterol Palpitations Social History Housing: House Alcohol intake: current Alcohol intake frequency: holidays/special occasions only Alcohol type: beer Patient Tobacco Use Status: Never used Tobacco Second Hand Smoke Exposure: No service: No Current occupational status: employed Cognitive needs: No Hearing needs: No Vision needs: Yes (rx glasses) Questionnaire PHQ-9 Over the last 2 weeks, how often have you been bothered by any of the following problems? 1. Little interest or pleasure in doing things: not at all 2. Feeling down, depressed, or hopeless: not at all 3. Trouble falling or staying asleep, or sleeping too much: not at all 4. Feeling tired or having little energy: not at all 5. Poor appetite or overeating: not at all 6. Feeling bad about yourself - or that you are a failure or have let yourself or your family down: not at all 7. Trouble concentrating on things, such as reading the newspaper or watching television: not at all 8. Moving or speaking so slowly that other people could have noticed. Or the opposite - being so fidgety or restless that you have been moving around a lot more than usual: not at all 9. Thoughts that you would be better off or of hurting yourself in some way: not at all Total score: 0 Depression Screening Interpretation: Negative Depression Screening Done: Yes 25840 - PHQ-9 Billing: Yes Source: Developed by Drs. Pardeep Victoria, Bryanna Yuan, Jose Elias Ram and colleagues, with an educational selma from [employer]. Thrive Questionnaire Date Thrive assessed: 05/13/25 I am a: Patient What is your living situation today?: I have a steady place to live Within the past 12 months, did the food you bought not last and you didn't have the money to get more?: Never true Within the past 12 months, did you worry whether your food would run out before you got money to buy more?: Never true Do you have trouble paying for medicines?: No Do you have trouble getting transportation to medical appointments?: No Do you have trouble paying your heating and electricity bill?: No Do you have trouble taking care of your child, family member or friend?: No Do you have trouble with day-to-day activities such as bathing, preparing meals, shopping, managing finances, etc.?: No Are you currently unemployed and looking for a job?: No Are you interested in more education?: No Please select the resources that you would like help with: None Currently or been in a relationship where the following occur: No concerns reported THRIVE Score: 0 AUDIT C Alcohol Use Questionnaire (AUDIT-C) 1. How often do you have a drink containing alcohol?: Monthly or less 2. How many drinks containing alcohol do you have on a typical day when you are drinking?: 1 or 2 3. How often do you have six or more drinks on one occasion?: Never Total Score: 1 Score Reviewed/Action Taken: No CALIN-7 AMB Questionnaire CALIN-7 Date CALIN - 7 assessed: 05/13/25 Feeling nervous, anxious, or on edge: 0 = Not at all Not being able to stop or control worryin = Not at all Worrying too much about different things: 0 = Not at all Trouble relaxin = Not at all Being so restless that it is hard to sit still: 0 = Not at all Becoming easily annoyed or irritable: 0 = Not at all Feeling afraid as if something awful might happen: 0 = Not at all Total CALIN-7 score (0-4 normal; 5-9 mild; 10-14 moderate; 15-21 severe): 0 Source: Developed by Drs. Pardeep Victoria, Bryanna Yuan, Jose Elias Ram and colleagues, with an educational selma from [employer]. CALIN-7 Assessment Billing CALIN-7 Assessment Tool: CALIN-7 Assessment 66371 Review of Systems Narrative Review of Systems - Eyes: Reports swelling and a leaky sensation in the right eye for the past 1-2 months. - Skin: Reports vitiligo. - Reports pruritus on the feet has resolved. - Gastrointestinal: Reports intermittent right-sided abdominal cramping for years, described as a muscle cramp that occurs before bed and resolves after 10- 15 minutes. - Denies abdominal pain with meals. - Reports no pain with abdominal palpation. Const All systems reviewed & are unremarkable except as noted in HPI and below Physical exam (Primary Care) Vital Signs: Last Vital Signs Temp 97.4 F 09/22/25 15:17 Pulse 84 09/22/25 15:17 BP 128/69 09/22/25 15:17 Pulse Ox 97 09/22/25 15:17 Care Plan Goal for BP management: <140/90 at Goal BMI result Body Mass Index 42.0 BMI Assessment/Plan discussion: High BMI High, discussed plan: lifestyle, weight reduction, dietary, physical activity, alcohol moderation and other Tobacco/Smoking Status: Tobacco use Status Tobacco use date assessed 05/13/25 09/22/25 15:18 Patient Tobacco Use Status Never used Tobacco 09/22/25 15:18 PHQ-9: PHQ-9 Score PHQ-9: Total score 0 09/22/25 16:13 Depression Screening Interpretation: Negative Thrive Assessment: Date of Thrive Assessment Date Thrive assessed 05/13/25 09/22/25 15:18 Currently or been in a relationship where the following occur: No concerns reported Narrative Physical Exam Appearance: Alert. Oriented X3. No acute distress. Head: Normal external exam. Normocephalic. Atraumatic. Eyes: Pupils are equal, round, and reactive to light. Extraocular movements intact. Conjunctiva and sclera normal. Right Eyelids show signs of blepharitis, possibly an eyelash infection. Throat: Pharynx normal. Uvula midline. Moist mucous membranes. Neck: Normal inspection. Neck supple. Full range of motion. Cardiovascular: Normal heart rate and rhythm. Heart sound normal. No murmurs noted. Pulses normal throughout. Respiratory: No respiratory distress. Painless inspiration. Breath sounds normal. No wheezes/rales/rhonchi noted. Chest nontender. No accessory muscle usage noted or decreased air movement noted. Abdomen: Soft and nontender. Bowel sounds normal in all 4 quadrants. No distention noted. No organomegaly noted. No visible injury noted. Reports occasional cramping on one side, possibly stress-related or muscle cramp. Back: Full range of motion noted. Skin: Skin warm and dry. Normal skin color. Vitiligo present, but not as pronounced currently. Extremities: Extremities exhibit normal range of motion. Neuro: Oriented X 3. No motor deficit. No sensory deficit. Reflexes normal. Office Procedures Flu Questionnaire Does the patient have a severe egg allergy?: No Does the patient have severe life threatening allergies?: No Does the patient have a fever or illness today?: No Has the patient ever had Guillain-[place] Syndrome?: No Has the patient ever had any past reaction to a flu shot?: No Results AMB Hemoglobin A1c AMB Hemoglobin A1c 5.5 % Last Edit by BRIE Morrow on 09/22/25 16:14 Immunizations Fluarix [id number] (PF) 45 mcg (15 mcg x 3)/0.5 mL IM syringe Performing Provider: Denise Toscano PA-C [facility] [place] Administered by: BRIE Morrow on 09/22/25 15:48 Dose Route Admin Location Dispensed Lot Number Expiration Date 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 - Labs from October of previous year: - Total cholesterol: 222 mg/dL. - LDL cholesterol: 153 mg/dL. - HDL cholesterol: 40 mg/dL. - Vitamin D: Low. - Liver enzymes: Slightly elevated. - Urinalysis: Normal. Coding Level of Care Code Est Pt Level 4 (88915) Complex EM visit Add On G2211 Diagnoses Intermittent abdominal pain R10.9 Blepharitis H01.009 Pure hypercholesterolemia, unspecified E78.00 Hyperlipidemia E78.5 Healthcare maintenance Z00.00 Prediabetes R73.03 Additional Codes CALIN-7 Assessment Billing - CALIN-7 Assessment Tool: CALIN-7 Assessment 50703 ([id number]) PHQ-9 - 69863 - PHQ-9 Billing: Yes ([id number]) Assessment & Plan Assessment & Plan (1) Intermittent abdominal pain: Code(s): R10.9 - Unspecified abdominal pain Category: Medical Plan: The patient reports a long-standing history of intermittent, right-sided abdominal cramping that feels like a muscle cramp. Given the location and history of slightly elevated liver enzymes, there is concern for a gallbladder issue, such as a gallstone causing intermittent obstruction. An abdominal ultrasound has been ordered to evaluate the liver and gallbladder. The patient will schedule the ultrasound for November. (2) Blepharitis: Code(s): H01.009 - Unspecified blepharitis unspecified eye, unspecified eyelid Category: Medical Plan: The patient presents with a swollen right eye with a leaky sensation for the past 1-2 months. The findings are consistent with blepharitis. Erythromycin ointment is prescribed to be applied to the eye and eyelid. The patient was counseled that the ointment may cause temporary blurry vision. (3) Pure hypercholesterolemia, unspecified: Code(s): E78.00 - Pure hypercholesterolemia, unspecified Category: Medical Plan: Lab results from last year showed elevated cholesterol (total 222 mg/dL, LDL 153 mg/dL). A 90-day prescription for simvastatin 80mg will be sent to the [facility]. Follow-up cholesterol levels will be checked with the upcoming comprehensive lab panel. (4) Hyperlipidemia: Code(s): E78.5 - Hyperlipidemia, unspecified Category: Medical Plan: Lab results from last year showed elevated cholesterol (total 222 mg/dL, LDL 153 mg/dL). A 90-day prescription for simvastatin 80mg will be sent to the pharmacy. Follow-up cholesterol levels will be checked with the upcoming comprehensive lab panel. (5) Healthcare maintenance: Code(s): Z00.00 - Encounter for general adult medical examination without abnormal findings Category: Medical Plan: A physical exam is deferred to November to avoid insurance coverage issues. Comprehensive lab work is ordered, including a CBC, CMP, lipids, magnesium, PSA, thyroid function, vitamin B12, and vitamin D, to be completed fasting before the next visit. A urinalysis is also ordered to check for blood, protein, or glucose. Today's in-office A1c was 5.5%, which is in the normal range. Prescriptions for vitamin D2 and D3 will be sent to the pharmacy due to a history of low vitamin D. (6) Prediabetes: Code(s): R73.03 - Prediabetes Category: Medical Plan: A physical exam is deferred to November to avoid insurance coverage issues. Comprehensive lab work is ordered, including a CBC, CMP, lipids, magnesium, PSA, thyroid function, vitamin B12, and vitamin D, to be completed fasting before the next visit. A urinalysis is also ordered to check for blood, protein, or glucose. Today's in-office A1c was 5.5%, which is in the normal range. Prescriptions for vitamin D2 and D3 will be sent to the pharmacy due to a history of low vitamin D. Plan Plan Patient was informed and verbally consented to the use of an ambient scribe for clinic note documentation during this visit. 1. Abdominal Cramping And Elevated Liver Enzymes The patient reports a long-standing history of intermittent, right-sided abdominal cramping that feels like a muscle cramp. Given the location and history of slightly elevated liver enzymes, there is concern for a gallbladder issue, such as a gallstone causing intermittent obstruction. An abdominal ultrasound has been ordered to evaluate the liver and gallbladder. The patient will schedule the ultrasound for November. 2. Blepharitis, Right Eye The patient presents with a swollen right eye with a leaky sensation for the past 1-2 months. The findings are consistent with blepharitis. Erythromycin ointment is prescribed to be applied to the eye and eyelid. The patient was counseled that the ointment may cause temporary blurry vision. 3. Hypercholesterolemia Lab results from last year showed elevated cholesterol (total 222 mg/dL, LDL 153 mg/dL). A 90-day prescription for simvastatin 80mg will be sent to the pharmacy. Follow-up cholesterol levels will be checked with the upcoming comprehensive lab panel. 4. Health Maintenance And Prediabetes A physical exam is deferred to November to avoid insurance coverage issues. Comprehensive lab work is ordered, including a CBC, CMP, lipids, magnesium, PSA, thyroid function, vitamin B12, and vitamin D, to be completed fasting before the next visit. A urinalysis is also ordered to check for blood, protein, or glucose. Today's in-office A1c was 5.5%, which is in the normal range. Prescriptions for vitamin D2 and D3 will be sent to the pharmacy due to a history of low vitamin D. Discussion Notes I discussed with the patient that his intermittent, right-sided abdominal cramp, in conjunction with a history of elevated liver enzymes, could be related to his gallbladder, even though it feels like a muscle cramp to him. I have ordered an abdominal ultrasound for further evaluation, and he agreed to schedule it in November. Regarding his right eye swelling, I explained it appears to be blepharitis, an infection of the eyelash, and I prescribed erythromycin ointment. I advised him that the ointment will cause temporary blurry vision for about five minutes after application. We reviewed his lab history, noting elevated cholesterol and low vitamin D from last year. I will send a 90-day supply of simvastatin 80mg and prescriptions for vitamin D2 and D3. I have ordered comprehensive blood work and a urinalysis, which he should complete while fasting before his next visit. We agreed to schedule his annual physical in November, at which time we will review all test results. Orders: Orders Vitamin B12 and Folate Today Z00.00 - Encounter for general adult medical examination without abnormal findings UA CC w/rflx Micro + Cult Today Z00.00 - Encounter for general adult medical examination without abnormal findings Lipid Panel Today Z00.00 - Encounter for general adult medical examination without abnormal findings Influenza [id number] Immunization Today Z23 - Encounter for immunization US abdomen complete Today R10.9 - Unspecified abdominal pain C Reactive Protein Today Z00.00 - Encounter for general adult medical examination without abnormal findings Complete Blood Count Auto Diff Today Z00.00 - Encounter for general adult medical examination without abnormal findings Comprehensive [place]. Panel Fast Today Z00.00 - Encounter for general adult medical examination without abnormal findings Magnesium Today Z00.00 - Encounter for general adult medical examination without abnormal findings Vitamin D 25-OH Total Today Z00.00 - Encounter for general adult medical examination without abnormal findings TSH reflex Free T4 Today Z00.00 - Encounter for general adult medical examination without abnormal findings PSA,Total (Free>4and<10) Today Z00.00 - Encounter for general adult medical examination without abnormal findings Microalbumin, Random (w Creat) Today E11.9 - Type 2 diabetes mellitus without complications Erythrocyte Sedimentation Rate Today Z00.00 - Encounter for general adult medical examination without abnormal findings AMB Hemoglobin A1c Today R73.09 - Other abnormal glucose Medications: New ergocalciferol (vitamin D2) 1,250 mcg PO QWEEK 90 caps 3RF cholecalciferol (vitamin D3) 125 mcg PO DAILY 90 caps 3RF erythromycin 1 appl ophthalmic (eye) Q8H 3.5 grams 3RF Changed From simvastatin 80 mg PO BEDTIME To simvastatin 80 mg PO BEDTIME 90 tabs 3RF 90 days Patient Instructions: Patient Instructions - Get blood work done before your next appointment. - You must fast for 8-10 hours before the blood test; you can drink water or black coffee with no cream or sugar. - You will receive a call to schedule an abdominal ultrasound; please schedule this for November. - Apply the erythromycin ointment to your right eye and eyelid as prescribed. - Be aware that your vision will be blurry for about five minutes after use, so do not drive immediately. - Prescriptions for simvastatin (for cholesterol) and vitamin D2/D3 have been sent to your pharmacy. - Schedule an appointment for your annual physical exam in November.
[2025-09-22 15:17] VITALS: BP 128/69; PULSE 84; TEMP 36.3; O2SAT 97; BMI 42.0
== END 2025-09-22 15:48 | disposition home or self-care (01) ==
LOC: HO.HMCSH 15:01
PROVIDERS: PCP Physician Assistant Medical; Visit Provider Physician Assistant Medical
DX: R10.9 Unspecified abdominal pain (principal); H01.009 Unspecified blepharitis unspecified eye, unspecified eyelid; E78.00 Pure hypercholesterolemia, unspecified; E78.5 Hyperlipidemia, unspecified; Z00.00 Encounter for general adult medical examination without abnormal findings; R73.03 Prediabetes; Z23 Encounter for immunization; R73.09 Other abnormal glucose

== ENCOUNTER → 2025-09-22 15:01 | Outpatient (BNVA) | payer OTHER, SELFPAY | PROVIDERS: PCP Physician Assistant Medical; Visit Provider Physician Assistant Medical | DX: Z00.00 Encounter for general adult medical examination without abnormal findings (principal); Z23 Encounter for immunization; R10.9 Unspecified abdominal pain; H01.009 Unspecified blepharitis unspecified eye, unspecified eyelid; E78.00 Pure hypercholesterolemia, unspecified; E78.5 Hyperlipidemia, unspecified; R73.03 Prediabetes | CPT/HCPCS: 83036; 90471; 90656; 96127 ==